=== PATIENT | female | born 1980 | race Caucasian/White ===

== ENCOUNTER 2018-05-12 09:17 | Inpatient (IN) ==
--- NOTE | 2018-05-12 17:22 | P.HP ---
History of Present Illness Service: 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 Patient states "hurts very much" associated with blurring of vision and itching. That evening patient developed a fever of 104 with fever and chills. She took some antibiotic eyedrops 2 drops 4 times a day which help with the itching however there was no improvement in the redness and pain in the eye. Patient denies any urinary symptoms, no burning, no vaginal discharge denies any melena or hematochezia. Last evening in addition to above symptoms complained of left-sided numbness lasting for few minutes and then recurred again and this time persistent. Persistence prompted consult to ER [facility] On further questioning patient states history of on and off palpitations. she works for Dr. [employer] where an an EKG was done in the recent past and was not sure what the results was but she was advised to take aspirin 2 months ago. She was taking 81 mg intermittently. On workup there at [place] - a facial CT was done which shows no abscess there was some scattered lymphadenopathy largest size of 1.8 cm the right submandibular area. Head CT was negative chest x-ray was negative. influenza a and B was negative blood cultures 2 were drawn. A UA shows 9-30 WBCs. C&S was sent. CBC shows a white count of 13 with the neutrophils of 77.3. Blood chemistry shows sodium of 139 potassium 3.8 chloride 104 CO2 26 BUN 7 creatinine 0.8 sugar of 136 AST 55 ALT 64 alkaline phosphatase 64 albumin 3.3 protein 8.3. Lactic acid level was normal at 1.6. Her temperature there was 100.3 with a heart rate of 97 pulse blood pressure is 102/62. Patient was given IV ceftriaxone Patient transferred here for further evaluation and management. Inpatient Certification: I certify that the inpatient services were ordered in accordance with Medicare regulations governing the order. This includes certification that hospital inpatient services are reasonable and necessary and in the case of services not specified as inpatient-only under 42 CFR 419.22(n), that they are appropriately provided as inpatient services in accordance to with the 2-midnight benchmark under 43 CFR 412.3(e) Estimated Total Length of Stay (Days): 2 Plans for Post Hospital Care: Not yet determined Review of Systems All other systems reviewed negative except as stated in HPI [facility] - History History Provided By: Patient - Medical History Medical History: Medical History (Last Reviewed 05/12/18 @ 10:19 by Judy Rao MD) Depression Hx of wisdom tooth extraction - Surgical History Surgical History: Surgical History (Last Reviewed 05/12/18 @ 10:19 by Judy Rao MD) Hx of breast reduction, elective Hx of cholecystectomy Hx of tonsillectomy Hx of tubal ligation - Family History Family History: Family History (Last Updated 05/12/18 @ 17:09 by Gary Gaming MD) Other Family history of diabetes mellitus Family history of hypertension - Tobacco History Second Hand Smoke Exposure: No Tobacco Use In Past 30 Days: No Smoking Status: Never smoker - Alcohol History How Often Do You Have a Drink Containing Alcohol: Monthly or less - Substance Use History Substance History: No History of Abuse Medications and Allergies Active Medications: Active Medications Sodium Chloride (Ns Inj) 1,000 mls @ 42 mls/hr IV.CONT .[id number] AP Allergies Allergy/AdvReac Type Severity Reaction Status Date / Time hydrocodone AdvReac Intermediate Nausea/Vomi Verified 05/12/18 09:38 ting Home Medications Medication Instructions Recorded Confirmed Type acetaminophen [Tylenol] 1,300 mg PO Q4H PRN 05/12/18 05/12/18 History aspirin [Aspirin Low Dose] 81 mg PO DAILY 05/12/18 05/12/18 History cetirizine [Zyrtec] 10 mg PO DAILY 05/12/18 05/12/18 History Exam Vital signs: Vital Signs 05/12/18 16:41 Temperature 98.6 F Pulse Rate 84 Respiratory Rate 20 Blood Pressure 115/69 Pulse Oximetry 95 Narrative: Awake alert oriented 3 not in any form of distress HEENT: Anicteric sclerae injected left lower conjunctivae, erythematous sclerae, extraocular muscles of the right eye full range of motion Left eye on exam of extraocular muscles positive pain with horizontal movements of the eye., Positive blurring of vision grossly, no orbital swelling moist oral mucosa Neck supple no nuchal rigidity no bruit Chest lungs clear breath sounds no rales no wheezes Heart regular rhythm no murmur Abdomen is soft nontender with good bowel sounds no masses Extremities no edema good peripheral pulses Neurologic exam Awake alert oriented 3 with clear coherent speech cranial nerves extraocular muscles full range of motion however positive pain elicited with horizontal movement of the left eye. Pupils equal Left eye on gross vision testing blurred No facial asymmetry Good gag reflex Tongue midline Grossly no sensory deficits Motor manual muscle tests very very mild left sided weakness of the LUE extremity and decreased motor strength noted on dorsiflexion of the foot noted on exam Grossly no sensory deficit gait testing deferred Caprini VTE Risk Assessment Caprini VTE Risk Assessment: Moderate/High Risk (score >= 2) (TEDS/SCDS) Caprini Risk Assessment Model: Point Value = 1 Point Value = 2 Point Value = 3 Point Value = 5 Age 41-60 Minor surgery BMI > 25 kg/m2 Swollen legs Varicose veins or History of unexplained or recurrent spontaneous Oral contraceptives or hormone replacement Sepsis (< 1 month) Serious lung disease, including pneumonia (< 1 month) Abnormal pulmonary function Acute myocardial infarction Congestive heart failure (< 1 month) History of inflammatory bowel disease Medical patient at bed rest Age 61-74 Arthroscopic surgery Major open surgery (> 45 min) Laparoscopic surgery (> 45 min) Malignancy Confined to bed (> 72 hours) Immobilizing plaster cast Central venous access Age >= 75 History of VTE Family history of VTE Factor V Leiden Prothrombin [id number] Lupus anticoagulant Anticardiolipin antibodies Elevated serum homocysteine Heparin-induced thrombocytopenia Other congenital or acquired thrombophilia Stroke (< 1 month) Elective arthroplasty Hip, pelvis, or leg fracture Acute spinal cord injury (< 1 month) Prophylaxis Regimen: Total Risk Factor Score Risk Level Prophylaxis Regimen 0-1 Low Early ambulation 2 Moderate Order ONE of the following: *Sequential Compression Device (SCD) *Heparin 5000 units SQ BID 3-4 Higher Order ONE of the following medications: *Heparin 5000 units SQ TID *Enoxaparin/Lovenox 40 mg SQ daily (WT < 150 kg, CrCl > 30 mL/min) *Enoxaparin/Lovenox 30 mg SQ daily (WT < 150 kg, CrCl > 10-29 mL/min) *Enoxaparin/Lovenox 30 mg SQ BID (WT < 150 kg, CrCl > 30 mL/min) AND/OR *Sequential Compression Device (SCD) 5 or more Highest Order ONE of the following medications: *Heparin 5000 units SQ TID (Preferred with Epidurals) *Enoxaparin/Lovenox 40 mg SQ daily (WT < 150 kg, CrCl > 30 mL/min) *Enoxaparin/Lovenox 30 mg SQ daily (WT < 150 kg, CrCl > 10-29 mL/min) *Enoxaparin/Lovenox 30 mg SQ BID (WT < 150 kg, CrCl > 30 mL/min) AND *Sequential Compression Device (SCD) Assessment and Plan - Plan 37-year-old right handed female presenting with 2 days fever chills white count on presentation tachycardic with fever Also complained of left-sided numbness and weakness left eye pain and redness with blurring of vision TIA with some mild left sided weakness and paresthesias History of palpitations Head CT was negative We will proceed with MRI of the brain Check carotid ultrasound 2D echo, HOlter Check a TSH Get a 12-lead EKG. Start patient on aspirin 325 mg p.o. daily Neurology consult UTI on UA_ patient asymtpomatic We will follow blood C and S and urine C and S done at [place] Continue on Rocephin daily . Patient received first dose at [place] Acute Left eye pain with redness, conjunctivitis with ameena decrease vision We will get an ophthalmology consult for evaluation and recommendations. Mildly elevated transaminases. We will recheck LFT in a.m. If persistence, consider imaging studies. History of allergy. Continue on Zyrtec 10 mg daily Bilateral teds and SCDs for DVT prophylaxis
[2018-05-12] MEDS: Sod Chloride 0.9% Inj 1,000 ML IV.CONT SCH (18:40)
[2018-05-12] MEDS ORDERED: Acetaminophen/Codeine 300/30 MG Tablet PO PRN (20:10)
--- NOTE | 2018-05-12 22:37 | US ---
EXAM DATE: 05/12/2018 10:28 PM EDT AGE/SEX: 37 years / Female INDICATIONS: Weakness. CLINICAL DATA: This is the patient's initial encounter. Patient reports that signs and symptoms have been present for 2 days and indicates a pain score of 0/10. MEDICAL/SURGICAL HISTORY: . Depression. Cholecystectomy. Tubal ligation. COMPARISON: [facility], CT FACIAL BONES W IV CON, 05/12/2018. . VELOCITY PARAMETERS: ICA/CCA Ratio: Right 1.24 , Left 1.02 ICA: Right 126 cm/sec, Left 127 cm/sec CCA: Right 102 cm/sec, Left 125 cm/sec ECA: Right 73 cm/sec, Left 94 cm/sec Vertebral: Right 80 cm/sec antegrade, Left 81 cm/sec antegrade FINDINGS: Right Carotid: No significant plaque is visualized.The waveforms are within normal limits. Left Carotid: No significant plaque is visualized. The waveforms are within normal limits. Other: Bilateral jugulodigastric cervical lymph nodes are present up to 1.4 x 1.8 x 2.8 cm on the ri ght and 1.3 x 1.4 x 3.0 cm on the left. CONCLUSION: 1. Right Internal Carotid Artery: No significant plaque or narrowing. 2. Left Internal Carotid Artery: No significant plaque or narrowing. 3. Upper limits of normal to mildly enlarged bilateral cervical lymph nodes, nonspecific. Electronically signed by: Jacoby Jordan MD 05/12/2018 10:36 PM EDT
[2018-05-13 06:56] LABS: Baso % (Auto) 0.4 % (0.0-2.0); Eos # (Auto) 0.1 th/mm3 (0.0-0.4); Hematocrit 35.2 % (35.0-46.0); Hemoglobin 12.5 gm/dL (11.6-15.3); Lymph # (Auto) 1.1 th/mm3 (1.0-4.8); Lymph % (Auto) 10.7 % (9.0-44.0); Mean Corpuscular HGB Conc 35.4 % (32.0-36.0); Mean Corpuscular Hemoglobin 31.8 pg (27.0-34.0); Mean Corpuscular Volume 89.7 fL (80.0-100.0); Mean Platelet Volume 7.2 fL (7.0-11.0); Mono # (Auto) 1.2 th/mm3 (0.0-0.9); Neut # (Auto) 7.8 th/mm3 (1.8-7.7); Neut % (Auto) 75.9 % (16.0-70.0); Platelet Count 277 th/mm3 (150-450); Red Blood Count 3.92 mil/mm3 (4.00-5.30); Red Cell Distribution Width 13.3 % (11.6-17.2); White Blood Count 10.3 th/mm3 (4.0-11.0)
[2018-05-13 07:31] LABS: Alanine Aminotransferase 62 U/L (10-53); Albumin 2.8 g/dL (3.4-5.0); Anion Gap 8 meq/L (5-15); Aspartate Aminotransferase 49 U/L (15-37); Blood Urea Nitrogen 6 mg/dL (7-18); Calcium 7.9 mg/dL (8.5-10.1); Carbon Dioxide 25.4 meq/L (21.0-32.0); Chloride 105 meq/L (98-107); Cholesterol 155 mg/dL (120-200); Glomerular Filtration Rate 82 mL/min (>89); Glucose,Random 90 mg/dL (74-106); Potassium 3.6 meq/L (3.5-5.1); Sodium 138 meq/L (136-145)
[2018-05-13 07:41] LABS: Alkaline Phosphatase 165 U/L (45-117); HDL Cholesterol 41.8 mg/dL (40.0-60.0); LDL Cholesterol,Calculated 98 mg/dL (0-99); Thyroid Stimulating Hormone 0.943 uIU/mL (0.358-3.740); Total Protein 7.3 g/dL (6.4-8.2); Triglycerides 76 mg/dL (42-150)
[2018-05-13] MEDS ORDERED: Gadobutrol PF 10 MMOL/10 ML Vial (for RAD) IV.SIG ONE (09:35)
[2018-05-13] MEDS ORDERED: Ibuprofen 400 MG Tablet PO PRN (10:04)
--- NOTE | 2018-05-13 10:06 | P.PN ---
Physical Exam Vital signs: Vital Signs 05/12/18 16:41 05/12/18 22:00 05/13/18 00:00 Temperature 98.6 F 99.1 F 98.9 F Pulse Rate 84 83 80 Respiratory Rate 20 19 20 Blood Pressure 115/69 127/65 120/62 Pulse Oximetry 95 100 100 05/13/18 05:45 05/13/18 08:00 Temperature 99.1 F 102.1 F H Pulse Rate 69 115 H Respiratory Rate 16 20 Blood Pressure 115/66 127/74 Pulse Oximetry 99 96 Intake & Output 05/12/18 05/13/18 05/13/18 18:59 06:59 18:59 Intake Total 1625 / 1625 100 / 100 Balance 1625 / 1625 100 / 100 Weight 88.3 kg 88.3 kg Intake: IV 100 / 100 Rocephin Inj 1,000 MG In NS Inj 100 / 100 100 ML @ 200 mls/hr IV.SIG Q24H AP Rx#:[id number] Oral 1625 / 1625 Other: # Voids 4 Date of Last Bowel Movement 05/12/18 # Bowel Movements 0 Weight On Admission 88.3 kg Narrative: Subjective: Patient is in bed appears tired. Complaints of fever she is noted with temp 102 today. Also complaints of sore throat. No n/v/d/c. Not eating much Eye pain with movement of the eye erythema not improving. Ophtal consulted will eval patient today. Physical exam: GENERAL: Middle age well nourished well developed patient in bed appears sick SKIN: Warm and dry. No rash. HEAD: Atraumatic. Normocephalic. EYES: Sclerae normal, injected left lower conjunctivae, erythematous sclerae, extraocular muscles of the right eye full range of motion. Left eye on exam of extraocular muscles positive pain with horizontal movements of the eye. Positive blurring of vision grossly, no orbital swelling .moist oral mucosa ENT: No nasal bleeding or discharge. Mucous membranes pink and moist. NECK: Trachea midline. No JVD. CARDIOVASCULAR: Regular rate and rhythm. RESPIRATORY: No accessory muscle use. Clear to auscultation. Breath sounds equal bilaterally. GASTROINTESTINAL: Abdomen soft, non-tender, nondistended. Hepatic and splenic margins not palpable. MUSCULOSKELETAL: Extremities without clubbing, cyanosis, or edema. No obvious deformities. NEUROLOGICAL: Awake and alert. No obvious cranial nerve deficits. Motor grossly within normal limits. Five out of 5 muscle strength in the arms and legs. Normal speech. PSYCHIATRIC: Appropriate mood and affect; insight and judgment normal. Assessment and Plan 37-year-old right handed female presenting with 2 days fever chills white count on presentation tachycardic with fever Also complained of left-sided numbness and weakness left eye pain and redness with blurring of vision TIA with some mild left sided weakness and paresthesias, left eye pain and change in vision History of palpitations Head CT was negative MRI of the brain reviewed and findings discussed with Dr Morel , MRI normal. Plan for MRA Check carotid ultrasound 2D echo, HOlter Check a TSH Get a 12-lead EKG. Start patient on aspirin 325 mg p.o. daily Neurology consult, appreciate recs. UTI on UA_ patient asymptomatic We will follow blood C and S and urine C and S done at [place] Continue on Rocephin daily . Patient received first dose at [place] Acute Left eye pain with redness, conjunctivitis with ameena decrease vision. POss 2/2 contact lenses Seen by Ophthalmology appreciate recommendations. Start TobraDex drops QID OS. Avoid contact lens until resolved. Follow up as outpatient or Friday Mildly elevated transaminases. Monitor LFT in a.m. If persistence, consider imaging studies. History of allergy. Continue on Zyrtec 10 mg daily Bilateral teds and SCDs for DVT prophylaxis Results - Labs CBC & Chem 7: 05/13/18 06:15 05/13/18 06:15 Laboratory Results - last 24 hr 05/13/18 05/13/18 06:15 06:15 WBC 10.3 RBC 3.92 L Hgb 12.5 Hct 35.2 MCV 89.7 MCH 31.8 MCHC 35.4 RDW 13.3 Plt Count 277 MPV 7.2 Neut % (Auto) 75.9 H Lymph % (Auto) 10.7 Barton % (Auto) 12.0 H Eos % (Auto) 1.0 Baso % (Auto) 0.4 Neut # (Auto) 7.8 H Lymph # (Auto) 1.1 Barton # (Auto) 1.2 H Eos # (Auto) 0.1 Baso # (Auto) 0.0 WBC Differential . Differential Comment Auto diff final Sodium 138 Potassium 3.6 Chloride 105 Carbon Dioxide 25.4 Anion Gap 8 BUN 6 L Creatinine 0.80 Estimated GFR 82 L Random Glucose 90 Calcium 7.9 L Total Bilirubin 0.6 AST 49 H ALT 62 H Alkaline Phosphatase 165 H Total Protein 7.3 D Albumin 2.8 L Triglycerides 76 Cholesterol 155 LDL Cholesterol, Calc 98 HDL Cholesterol 41.8 Cholesterol/HDL Ratio 3.70 TSH 0.943 - Imaging Impressions Carotid Doppler Study 05/12/18 00:00 CONCLUSION: 1. Right Internal Carotid Artery: No significant plaque or narrowing. 2. Left Internal Carotid Artery: No significant plaque or narrowing. 3. Upper limits of normal to mildly enlarged bilateral cervical lymph nodes, nonspecific.
--- NOTE | 2018-05-13 10:18 | MR ---
EXAM DATE: 05/13/2018 9:37 AM EDT AGE/SEX: 37 years / Female INDICATIONS: Left sided weakness. CLINICAL DATA: This is the patient's subsequent encounter. Patient reports that signs and symptoms h ave been present for 2 days and indicates a pain score of 0/10. MEDICAL/SURGICAL HISTORY: Hypertension. Tubal ligation. Cholecystectomy. Tonsillectomy. [address] reduction. [place] teeth removal. COMPARISON: [facility], CT HEAD W/O CONTRAST, 05/12/2018.. . TECHNIQUE: Multiplanar, multisequence examination of the brain was performed without and with 9 ml Ga davist (gadobutrol) contrast as a single exam dose. FINDINGS: Cerebrum: The ventricles are normal for age. No evidence of midline shift, mass lesion, hemorrhage or acute infarction. No extraaxial fluid collections are seen. The pituitary gland and suprasellar cistern are normal in configuration. White Matter: No significant signal abnormalities are seen in the white matter. Posterior Fossa: The cerebellum and brainstem are intact. The 4th ventricle is midline. The cerebel lopontine angle is unremarkable. The cerebellar tonsils are normal in position. Diffusion Imaging: No focal areas of restricted diffusion are seen. No evidence of acute infarction . Extracranial: The visualized portions of the orbits and paranasal sinuses are unremarkable. Post Contrast: No abnormal areas of parenchymal or dural enhancement. No evidence of blood-brain ba rrier breakdown. CONCLUSION: 1. Negative MR Brain with and without contrast. Electronically signed by: Kunal Dejesus MD 05/13/2018 10:16 AM EDT
--- NOTE | 2018-05-13 10:23 | MB ---
cc: Leta Morel MD DATE: 05/13/2018 REASON FOR CONSULTATION: Paresthesia left side of the face and arm. HISTORY OF PRESENT ILLNESS: This is a 37-year-old woman who 3 days ago woke up with left eye pain, redness, possible pinkeye. She came back from a trip driving back from picking up her children, I believe in [place]. Both of her boys apparently had pinkeye. However, she developed a fever she states of 104 and chills, also some nasal discharge and a sore throat. Used some antibiotic eyedrops which helped with some of the pruritus, but the redness and the pain in the eye did not improve. No nuchal rigidity, but she does state that her left side of the face, arm, and leg at times feel numb. No obvious weakness. Hence was admitted for further workup. She had a facial CT at [place] that did not show an abscess, some lymphadenopathy, right submandibular. Chest x-ray was negative. Influenza A and B were negative. Blood cultures x 2 were drawn. UA showed some white cells. Her temperature currently is 102.4 I am told by nursing staff. She just came back from MRI and still has a left eye pain, redness, pruritus and some paresthesias in the face, arm, and leg. No nuchal rigidity, but her throat does hurt. PAST MEDICAL HISTORY: Only of depression. PAST SURGICAL HISTORY: [place] tooth extraction, breast reduction, cholecystectomy, tonsillectomy and tubal ligation. FAMILY HISTORY: Diabetes and hypertension. 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 Does not smoke, drink or use drugs. PHYSICAL EXAMINATION: VITAL SIGNS: Temperature as stated just recently 102.4, blood pressure 115/66. NEUROLOGIC: She is awake and alert. She is oriented. Her left eye is red and swollen. Extraocular muscles are intact. Visual oconnor are full. Extraocular muscles are intact, but she states she has pain with movement. Face is symmetrical. Tongue is midline. Motor nathan, no significant drift or leg lag. Cerebellar normal. DTRs are 1+. Toes, withdraws. Gait is withheld. LABORATORY DATA: Reviewed. Her neutrophil percentage 75.9, monocytes 12. White count 10.3, hemoglobin 12.5, hematocrit 35.2. Chemistries: GFR 82, her AST 49, ALT 62, alkaline phosphatase 155, albumin 2.8, TSH 0.943. Microbiology is not done. IMAGING: Imaging of the brain has been completed and report is pending, but looking at the fusion and with contrast, I did not see anything significant. No acute infarct. IMPRESSION: Probable viral syndrome with possible pinkeye. Left side dysesthesias at this point are questionable. Her carotids were negative. PLAN: Given her findings, I am going to go ahead and order an MRA just to look at the intracranial arteries to make sure there is no aneurysm, although less likely. She is pending an echocardiogram. Lactic acid will be done. Use Tylenol for her fever and ophthalmology, I believe, has been consulted as well. I will defer to ophthalmology if they think she needs a spinal tap. At this point, I think it is probably a viral etiology, but further recommendations will be made accordingly. She is on Rocephin. Continue with that for the interim and Tylenol for fever. MRA will be ordered. Leta Morel MD DF/DL , 10:07 AM , 10:15 AM
[2018-05-13] MEDS: Acetaminophen 325 MG Tablet PO PRN (13:08)
--- NOTE | 2018-05-13 13:41 | P.CON ---
History of Present Illness Service: Ophthalmology Reason for Consult: left eye pain Primary Care Provider: UNKNOWN Chief Complaint: Fever chills, flulike symptoms, left eye pain, left-sided numbness History of Present Illness: 37 yo F c/o 10 day h/o of left eye redness and pain. States her 2 sons had pink eye recently so she started using their antibiotic drops. Also has been wearing contact lenses up until 3 days ago - last Friday she accidently put contact lens edge grinder machine in her left eye. C/o throbbing pain OS, blurred vision, clear discharge. Also getting a workup for numbness, cervical lymphadenopathy and heart palpitations. [facility] - History History Provided By: Patient - Medical History Medical History: Medical History (Last Reviewed 05/13/18 @ 08:46 by Justyna Langford) Depression Hx of wisdom tooth extraction - Surgical History Surgical History: Surgical History (Last Reviewed 05/13/18 @ 08:46 by Justyna Langford) Hx of breast reduction, elective Hx of cholecystectomy Hx of tonsillectomy Hx of tubal ligation - Family History Family History: Family History (Last Updated 05/12/18 @ 17:09 by Gary Gaming MD) Other Family history of diabetes mellitus Family history of hypertension - Tobacco History Second Hand Smoke Exposure: No Tobacco Use In Past 30 Days: No Smoking Status: Never smoker - Alcohol History How Often Do You Have a Drink Containing Alcohol: Monthly or less - Substance Use History Substance History: No History of Abuse Medications and Allergies Active Medications: Active Medications Acetaminophen (Tylenol) 650 mg PO Q4H PRN PRN Reason: fever/headache Last Admin: 05/13/18 13:08 Dose: 650 mg Acetaminophen/Codeine Phosphate (Tylenol W/Cod #3) 1 tab PO Q4H PRN PRN Reason: PAIN SCALE 5-10/SEVERE COUGH Last Admin: 05/12/18 21:39 Dose: 1 tab Aspirin (Ecotrin) 325 mg PO DAILY [facility] Last Admin: 05/13/18 08:32 Dose: 325 mg Sodium Chloride (Ns Inj) 1,000 mls @ 42 mls/hr IV.CONT .[id number] [facility] Last Admin: 05/12/18 18:40 Dose: 42 mls/hr Ceftriaxone Sodium 1,000 mg/ (Sodium Chloride) 100 mls @ 200 mls/hr IV.SIG Q24H [facility] Last Infusion: 05/13/18 09:16 Dose: Infused Ibuprofen (Motrin) 400 mg PO Q8H PRN PRN Reason: fevers if not releav w/tylenol Last Admin: 05/13/18 10:52 Dose: 400 mg Lorazepam (Ativan Inj) 0.5 mg IV.PUSH ONCE PRN PRN Reason: give prior to MRI Last Admin: 05/13/18 08:36 Dose: 0.5 mg Ondansetron HCl (Zofran Inj) 4 mg IV.PUSH Q6H PRN PRN Reason: NAUSEA OR VOMITING Allergies Allergy/AdvReac Type Severity Reaction Status Date / Time hydrocodone AdvReac Intermediate Nausea/Vomi Verified 05/12/18 09:38 ting Home Medications Medication Instructions Recorded Confirmed Type acetaminophen [Tylenol] 1,300 mg PO Q4H PRN 05/12/18 05/12/18 History aspirin [Aspirin Low Dose] 81 mg PO DAILY 05/12/18 05/12/18 History cetirizine [Zyrtec] 10 mg PO DAILY 05/12/18 05/12/18 History Physical Exam Vital signs: Vital Signs 05/12/18 16:41 05/12/18 22:00 05/13/18 00:00 Temperature 98.6 F 99.1 F 98.9 F Pulse Rate 84 83 80 Respiratory Rate 20 19 20 Blood Pressure 115/69 127/65 120/62 Pulse Oximetry 95 100 100 05/13/18 05:45 05/13/18 08:00 05/13/18 12:00 Temperature 99.1 F 102.1 F H 100.9 F H Pulse Rate 69 115 H 116 H Respiratory Rate 16 20 20 Blood Pressure 115/66 127/74 127/66 Pulse Oximetry 99 96 95 Intake & Output 05/12/18 05/13/18 05/13/18 18:59 06:59 18:59 Intake Total 1625 / 1625 100 / 100 Balance 1625 / 1625 100 / 100 Weight 88.3 kg 88.3 kg Intake: IV 100 / 100 Rocephin Inj 1,000 MG In NS Inj 100 / 100 100 ML @ 200 mls/hr IV.SIG Q24H AP Rx#:[id number] Oral 1625 / 1625 Other: # Voids 4 2 Date of Last Bowel Movement 05/12/18 # Bowel Movements 0 Weight On Admission 88.3 kg - Detailed Eye Exam Comments: Va cc at near OD 20/25, OS 20/40 EOM full OU, no diplopia CVF full OU Pupils 2-1 no APD OU IOP normal to palpation OU Anterior exam OD - normal eyelid, C/S W&Q, K clear, AC deep, pupil round, lens clear OS - mild eyelid edema, conj injection, K clear, AC deep, pupil round, lens clear Assessment and Plan - Assessment (1) Viral conjunctivitis of left eye Code(s): B30.9 - Viral conjunctivitis, unspecified Status: Acute - Plan Viral conjunctivitis vs chemical injury from contact lens edge grinder machine. Will start TobraDex drops QID OS. Avoid contact lens until resolved. Follow up as outpatient or Friday - pt has address and phone number to call and schedule.
--- NOTE | 2018-05-13 14:27 | ECHRPT ---
Indication: CVA/TIA CONCLUSIONS Normal left ventricular size. Wall thickness is normal. The left ventricular systolic function is normal with an estimated ejection fraction in the range of 55-60%. Trace mitral valve regurgitation. There is trace tricuspid valve regurgitation. BP: / HR: Rhythm: Sinus MEASUREMENTS (Male / Female) Normal Values Technical Quality:Fair 2D ECHO LV Diastolic Diameter PLAX 4.4 cm 4.2 - 5.9 / 3.9 - 5.3 cm LV Systolic Diameter PLAX 3.4 cm IVS Diastolic Thickness 0.7 cm 0.6 - 1.0 / 0.6 - 0.9 cm LVPW Diastolic Thickness 0.8 cm 0.6 - 1.0 / 0.6 - 0.9 cm LV Relative Wall Thickness 0.3 RV Internal Dim ED PLAX 2.4 cm LVOT Diameter 1.9 cm Aortic Root Diameter 2.9 cm LA Systolic Diameter LX 3.4 cm 3.0 - 4.0 / 2.7 - 3.8 cm M-MODE AV Cusp Separation MM 1.9 cm DOPPLER AV Peak Velocity 128.0 cm/s AV Peak Gradient 6.6 mmHg AV Mean Gradient 4.0 mmHg AV Velocity Time Integral 18.4 cm LVOT Peak Velocity 80.5 cm/s LVOT Peak Gradient 2.6 mmHg LVOT Velocity Time Integral 11.5 cm AV Area Cont Eq vti 1.8 cm AV Area Cont Eq pk 1.8 cm Mitral E Point Velocity 95.8 cm/s Mitral A Point Velocity 68.6 cm/s Mitral E to A Ratio 1.4 LV E' Lateral Velocity 8.6 cm/s Mitral E to LV E' Lateral Ratio 11.2 LV E' Septal Velocity 10.8 cm/s Mitral E to LV E' Septal Ratio 8.9 PV Peak Velocity 72.2 cm/s PV Peak Gradient 2.1 mmHg FINDINGS LEFT VENTRICLE Normal left ventricular size. Wall thickness is normal. The left ventricular systolic function is normal with an estimated ejection fraction in the range of 55-60%. RIGHT VENTRICLE Normal right ventricular size and systolic function. LEFT ATRIUM The left atrial size is normal. RIGHT ATRIUM The right atrial size is normal. ATRIAL SEPTUM No atrial level shunt is demonstrated by color flow Doppler interrogation. AORTA The aortic root and proximal ascending aorta are normal in size on limited imaging. MITRAL VALVE Trace mitral valve regurgitation. AORTIC VALVE Trileaflet aortic valve. No aortic valve stenosis or regurgitation. TRICUSPID VALVE There is trace tricuspid valve regurgitation. PULMONARY VALVE No pulmonary valve regurgitation or stenosis. VESSELS The inferior vena cava was not well visualized. PERICARDIUM No pericardial effusion. Binu Castellano MD, FACC, [facility] – [place] (Electronically Signed) Final Date:13 May 2018 14:27
[2018-05-13] MEDS ORDERED: LORazepam 1 MG Tablet PO ONE (15:00)
[2018-05-13] MEDS: Sod Chloride 0.9% Inj 1,000 ML IV.CONT SCH (16:13)
--- NOTE | 2018-05-13 16:47 | MR ---
EXAM DATE: 05/13/2018 4:14 PM EDT AGE/SEX: 37 years / Female INDICATIONS: Left sided weakness. CLINICAL DATA: This is the patient's initial encounter. Patient reports that signs and symptoms have been present for 2 days and indicates a pain score of 0/10. MEDICAL/SURGICAL HISTORY: Hypertension. Tubal ligation. Cholecystectomy. Tonsillectomy. COMPARISON: [facility] [place] W & W/O CONTRAST, 05/13/2018. . TECHNIQUE: 3D [id number] MRA was performed. Source images, multiplanar STS MIP, and 3D volum e MIP reconstructions were reviewed. FINDINGS: There is excellent visualization of the major intracranial arteries out to the second-order branch ve ssels. There is no evidence for aneurysm, vessel truncation or stenosis, and no evidence for vascula r malformation. CONCLUSION: Negative exam. Intracranial vessels are all patent without aneurysmal disease. Electronically signed by: Jeffrey Messina MD 05/13/2018 4:46 PM EDT
[2018-05-13] MEDS: Tobramycin/Dexamethasone Opth Drops 5 ML Bottle LEFT EYE SCH ×2 (18:32→22:23)
--- NOTE | 2018-05-13 22:19 | ECG ---
Date Performed: 05/12/2018 Time Performed: 21:55:54 PTAGE: 37 years EKG: Sinus rhythm NORMAL ECG NO PREVIOUS TRACING DOCTOR: Jamir Barajas Interpretating Date/Time 05/13/2018 22:18:38
[2018-05-14] MEDS: Acetaminophen 325 MG Tablet PO PRN ×2 (06:36→16:15)
[2018-05-14] MEDS: Tobramycin/Dexamethasone Opth Drops 5 ML Bottle LEFT EYE SCH ×4 (09:06→20:16)
--- NOTE | 2018-05-14 11:21 | P.PN ---
Physical Exam Vital signs: Vital Signs 05/13/18 12:00 05/13/18 16:00 05/13/18 20:00 Temperature 100.9 F H 98 F 97.6 F Pulse Rate 116 H 80 83 Respiratory Rate 20 20 20 Blood Pressure 127/66 110/71 114/75 Pulse Oximetry 95 97 96 05/14/18 00:00 05/14/18 04:00 05/14/18 08:00 Temperature 98.8 F 99.1 F 97.9 F Pulse Rate 111 H 102 H 91 H Respiratory Rate 20 20 20 Blood Pressure 121/70 103/55 L 108/66 Pulse Oximetry 98 98 96 Intake & Output 05/13/18 05/14/18 05/14/18 18:59 06:59 18:59 Intake Total 1100 / 1100 120 / 120 100 / 100 Balance 1100 / 1100 120 / 120 100 / 100 Weight 88.3 kg 87.7 kg Intake: IV 1100 / 1100 100 / 100 NS Inj 1,000 ML @ 42 mls/hr IV. 1000 / 1000 CONT .[id number] AP Rx#:[id number] Rocephin Inj 1,000 MG In NS Inj 100 / 100 100 / 100 100 ML @ 200 mls/hr IV.SIG Q24H AP Rx#:[id number] Oral 120 / 120 Other: # Voids 2 Date of Last Bowel Movement 05/13/18 Weight On Admission 88.3 kg Narrative: Subjective: Patient is in bed appears tired. With sore throat. With more cough today , says she is coughing up blood. No n/v/d/c. Not eating much, has decreased appetite. Physical exam: GENERAL: Middle age well nourished well developed patient in bed appears sick SKIN: Warm and dry. No rash. HEAD: Atraumatic. Normocephalic. EYES: Sclerae normal, injected left lower conjunctivae, erythematous sclerae, extraocular muscles of the right eye full range of motion. Left eye on exam of extraocular muscles positive pain with horizontal movements of the eye. Positive blurring of vision grossly, no orbital swelling .moist oral mucosa ENT: No nasal bleeding or discharge. Mucous membranes pink and moist. NECK: Trachea midline. No JVD. CARDIOVASCULAR: Regular rate and rhythm. RESPIRATORY: No accessory muscle use. Clear to auscultation. Breath sounds equal bilaterally. GASTROINTESTINAL: Abdomen soft, non-tender, nondistended. Hepatic and splenic margins not palpable. MUSCULOSKELETAL: Extremities without clubbing, cyanosis, or edema. No obvious deformities. NEUROLOGICAL: Awake and alert. No obvious cranial nerve deficits. Motor grossly within normal limits. Five out of 5 muscle strength in the arms and legs. Normal speech. PSYCHIATRIC: Appropriate mood and affect; insight and judgment normal. Assessment and Plan 37-year-old right handed female presenting with 2 days fever chills white count on presentation tachycardic with fever Also complained of left-sided numbness and weakness left eye pain and redness with blurring of vision TIA with some mild left sided weakness and paresthesias, left eye pain and change in vision History of palpitations Head CT was negative MRI of the brain reviewed and findings discussed with Dr Morel , MRI normal. MRA normal Check carotid ultrasound NL, 2D echo pending, Holter TSH nl Get a 12-lead EKG. On aspirin 325 mg p.o. daily Neurology consult, appreciate recs. UTI on UA_ patient asymptomatic We will follow blood C and S and urine C and S done at [facility] Continue on Rocephin daily . Patient received first dose at [facility] Hemoptysis. Add azithromycin, sent sputum cultures, legionella and pneumococcal Ag. Add azithromycin, continue IV abx Rocephin. Consult pulmonology Acute Left eye pain with redness, conjunctivitis with ameena decrease vision. POss 2/2 contact lenses Seen by Ophthalmology appreciate recommendations. Start TobraDex drops QID OS. Avoid contact lens until resolved. Follow up as outpatient or Friday Mildly elevated transaminases. Monitor LFT in a.m. If persistence, consider imaging studies. History of allergy. Continue on Zyrtec 10 mg daily Bilateral teds and SCDs for DVT prophylaxis Discussed with the patient, nurse Results - Labs CBC & Chem 7: 05/13/18 06:15 05/13/18 06:15 Laboratory Results - last 24 hr 05/13/18 11:13 Lactic Acid 1.0 - Imaging Impressions Head MRA 05/13/18 00:00 CONCLUSION: Negative exam. Intracranial vessels are all patent without aneurysmal disease.
[2018-05-14] MEDS: Azithromycin Inj 500 MG in Sodium Chlor 0.9% Inj 250 ML IV.SIG SCH ×2 (16:17→17:15)
[2018-05-14] MEDS: Sod Chloride 0.9% Inj 1,000 ML IV.CONT SCH (17:22)
--- NOTE | 2018-05-14 17:30 | US ---
EXAM DATE: 05/14/2018 5:09 PM EDT AGE/SEX: 37 years / Female INDICATIONS: Elevated lab values. CLINICAL DATA: This is the patient's initial encounter. Patient reports that signs and symptoms have been present for 1 day and indicates a pain score of 0/10. MEDICAL/SURGICAL HISTORY: . Depression. Cholecystectomy. Tubal ligation. Tonsillectomy. Wis dom tooth extraction. Breast reduction. COMPARISON: No prior exams available for comparison. MEASUREMENTS: Liver:__ 15.1 cm. Common Bile Duct:__ 3mm. Right Kidney:__ 10.6 x 5.3 x 4.1 cm. FINDINGS: Liver: Parenchymal echogenicity within normal limits. No focal hepatic lesion demonstrated. No intrah epatic biliary distention. Portal Vein: Normal flow velocity and direction in the main portal vein. Common Duct: No intraluminal mass or stone visualized. Gallbladder: Surgically absent. Pancreas: Not well visualized. No perceptible acute abnormality. Right Kidney: Size and echogenicity within normal limits. No hydronephrosis or mass seen. Other: None. CONCLUSION: 1. No acute abnormality demonstrated. 2. Previous cholecystectomy. Electronically signed by: Jacoby Jordan MD 05/14/2018 5:29 PM EDT
[2018-05-14 19:49] LABS: Albumin 2.6 g/dL (3.4-5.0); Anion Gap 9 meq/L (5-15); Aspartate Aminotransferase 77 U/L (15-37); Blood Urea Nitrogen 8 mg/dL (7-18); Carbon Dioxide 25.1 meq/L (21.0-32.0); Chloride 104 meq/L (98-107); Glomerular Filtration Rate Greater Than 89 mL/min (>89); Glucose,Random 83 mg/dL (74-106); Potassium 3.5 meq/L (3.5-5.1); Sodium 138 meq/L (136-145)
[2018-05-14 19:50] LABS: Alanine Aminotransferase 84 U/L (10-53)
[2018-05-14 19:51] LABS: Alkaline Phosphatase 197 U/L (45-117); Total Protein 7.2 g/dL (6.4-8.2)
[2018-05-14 21:58] LABS: Hepatitis A IgM Antibody Nonreactive (Nonreactive)
[2018-05-14 21:59] LABS: Hepatitits B Surface Antigen Nonreactive (Nonreactive)
[2018-05-15] MEDS: Sod Chloride 0.9% Inj 1,000 ML IV.CONT SCH ×2 (03:36→17:43)
[2018-05-15 08:18] LABS: Baso % (Auto) 0.5 % (0.0-2.0); Eos # (Auto) 0.3 th/mm3 (0.0-0.4); Eos % (Auto) 3.4 % (0.0-4.0); Hematocrit 37.6 % (35.0-46.0); Hemoglobin 12.7 gm/dL (11.6-15.3); Lymph # (Auto) 1.7 th/mm3 (1.0-4.8); Lymph % (Auto) 17.9 % (9.0-44.0); Mean Corpuscular HGB Conc 33.9 % (32.0-36.0); Mean Corpuscular Hemoglobin 30.8 pg (27.0-34.0); Mean Corpuscular Volume 90.9 fL (80.0-100.0); Mean Platelet Volume 7.2 fL (7.0-11.0); Mono # (Auto) 0.9 th/mm3 (0.0-0.9); Mono % (Auto) 9.4 % (0.0-8.0); Neut # (Auto) 6.5 th/mm3 (1.8-7.7); Neut % (Auto) 68.8 % (16.0-70.0); Platelet Count 313 th/mm3 (150-450); Red Blood Count 4.13 mil/mm3 (4.00-5.30); Red Cell Distribution Width 12.9 % (11.6-17.2); White Blood Count 9.4 th/mm3 (4.0-11.0)
[2018-05-15 08:37] LABS: Albumin 2.9 g/dL (3.4-5.0); Anion Gap 9 meq/L (5-15); Aspartate Aminotransferase 78 U/L (15-37); Blood Urea Nitrogen 7 mg/dL (7-18); Calcium 8.7 mg/dL (8.5-10.1); Carbon Dioxide 24.3 meq/L (21.0-32.0); Chloride 106 meq/L (98-107); Glomerular Filtration Rate Greater Than 89 mL/min (>89); Glucose,Random 81 mg/dL (74-106); Potassium 3.7 meq/L (3.5-5.1); Sodium 139 meq/L (136-145)
[2018-05-15 08:39] LABS: Alanine Aminotransferase 97 U/L (10-53)
[2018-05-15 08:40] LABS: Alkaline Phosphatase 213 U/L (45-117)
[2018-05-15] MEDS: Tobramycin/Dexamethasone Opth Drops 5 ML Bottle LEFT EYE SCH ×4 (08:51→21:23)
--- NOTE | 2018-05-15 09:15 | P.PN ---
Physical Exam Vital signs: Vital Signs 05/14/18 12:00 05/14/18 16:00 05/14/18 20:00 Temperature 98.3 F 99.1 F 98.0 F Pulse Rate 88 82 67 Respiratory Rate 20 19 18 Blood Pressure 110/58 L 135/62 114/66 Pulse Oximetry 96 96 97 05/15/18 00:00 05/15/18 04:00 05/15/18 07:36 Temperature 97.6 F 97.9 F 97.9 F Pulse Rate 67 70 86 Respiratory Rate 18 18 12 Blood Pressure 138/59 L 113/69 120/69 Pulse Oximetry 96 98 99 Intake & Output 05/14/18 05/15/18 05/15/18 18:59 06:59 18:59 Intake Total 100 / 100 1000 / 1000 Balance 100 / 100 1000 / 1000 Weight 87.7 kg Intake: IV 100 / 100 1000 / 1000 NS Inj 1,000 ML @ 42 mls/hr IV. 1000 / 1000 CONT .[id number] AP Rx#:[id number] Rocephin Inj 1,000 MG In NS Inj 100 / 100 100 ML @ 200 mls/hr IV.SIG Q24H AP Rx#:[id number] Other: # Voids 4 Date of Last Bowel Movement 05/13/18 05/14/18 05/13/18 Narrative: Subjective: Patient is in bed appears tired. With sore throat and painful LAD on the left side, with left ear pain. Still with cough , not much coughing blood today. No n/v/d/c. Not eating much, has decreased appetite. No fevers overnight. Seem left eye is improving however now the right eye is getting worse. Some abdominal pain today RUQ. Physical exam: GENERAL: Middle age well nourished well developed patient in bed appears sick SKIN: Warm and dry. No rash. HEAD: Atraumatic. Normocephalic. EYES: Sclerae normal, injected left adn right lower conjunctivae, erythematous sclerae, improving on the left side, however patient now with worsening symptoms on right eye . Left eye and right eye on exam of extraocular muscles has pain with EOM. Positive blurring of vision grossly, no orbital swelling . Moist and pink oral mucosa ENT: Red right tympanic membrane. Left ear normal tympanic membrane no pain. No nasal bleeding or discharge. Mucous membranes pink and moist. NECK: Trachea midline. No JVD. CARDIOVASCULAR: Regular rate and rhythm. RESPIRATORY: No accessory muscle use. Clear to auscultation. Breath sounds equal bilaterally. GASTROINTESTINAL: Abdomen soft, nondistended. + BS. Mild tenderness on palpation RUQ. Hepatic and splenic margins not palpable. MUSCULOSKELETAL: Extremities without clubbing, cyanosis, or edema. No obvious deformities. NEUROLOGICAL: Awake and alert. No obvious cranial nerve deficits. Motor grossly within normal limits. Five out of 5 muscle strength in the arms and legs. Normal speech. Assessment and Plan 37-year-old right handed female presenting with 2 days fever chills white count on presentation tachycardic with fever Also complained of left-sided numbness and weakness left eye pain and redness with blurring of vision TIA with some mild left sided weakness and paresthesias, left eye pain and change in vision History of palpitations Head CT was negative MRI of the brain reviewed and findings discussed with Dr Morel , MRI normal. MRA normal Check carotid ultrasound NL, 2D echo pending, Holter TSH nl Get a 12-lead EKG. On aspirin 325 mg p.o. daily Neurology consult, appreciate recs. UTI on UA_ patient asymptomatic We will follow blood C and S and urine C and S done at [place] Continue on Rocephin daily . Patient received first dose at [place] Hemoptysis. Add azithromycin, sent sputum cultures, legionella and pneumococcal Ag. Add azithromycin, continue IV abx Rocephin. Consult pulmonology. Bilateral Right and Left eye pain with redness, conjunctivitis with ameena decrease vision. Left eye improving but now noted right eye worsening. Poss 2/ 2 contact lenses Seen by Ophthalmology appreciate recommendations. Start TobraDex drops QID OS. Avoid contact lens until resolved. Follow up as outpatient or Friday Otitis interna and externa. on IV antibiotics, add ciprofloxacin and asa otic drops. Mildly elevated transaminases. Monitor LFT in a.m. If persistence, consider imaging studies. Transaminitis. Elevated AlkPhos. CT a/p no stones. Elevated LFT repeat LFT are worsening. Will DC Tylenol. Ordered liver US and is normal . also ordered hep panel ans is normal. .Consult GI for evaluation. Patient has a h/o cholecystectomy. History of allergy. Continue on Zyrtec 10 mg daily Bilateral teds and SCDs for DVT prophylaxis Discussed with the patient, nurse Results - Labs CBC & Chem 7: 05/15/18 07:25 05/15/18 07:25 Laboratory Results - last 24 hr 05/14/18 05/14/18 05/15/18 18:40 18:40 07:25 WBC 9.4 RBC 4.13 Hgb 12.7 Hct 37.6 MCV 90.9 MCH 30.8 MCHC 33.9 RDW 12.9 Plt Count 313 MPV 7.2 Neut % (Auto) 68.8 Lymph % (Auto) 17.9 [place] % (Auto) 9.4 H Eos % (Auto) 3.4 Baso % (Auto) 0.5 Neut # (Auto) 6.5 Lymph # (Auto) 1.7 [place] # (Auto) 0.9 Eos # (Auto) 0.3 Baso # (Auto) 0.0 WBC Differential . Differential Comment Auto diff final Sodium 138 Potassium 3.5 Chloride 104 Carbon Dioxide 25.1 Anion Gap 9 BUN 8 Creatinine 0.64 Estimated GFR Greater than 89 Random Glucose 83 Calcium 8.0 L Total Bilirubin 0.4 AST 77 H ALT 84 H Alkaline Phosphatase 197 H Total Protein 7.2 Albumin 2.6 L Hepatitis A IgM Ab Nonreactive Hep Bs Antigen Nonreactive Hep B Core IgM Ab Nonreactive Hep C IgG Ab Nonreactive 05/15/18 07:25 WBC RBC Hgb Hct MCV MCH MCHC RDW Plt Count MPV Neut % (Auto) Lymph % (Auto) [place] % (Auto) Eos % (Auto) Baso % (Auto) Neut # (Auto) Lymph # (Auto) [place] # (Auto) Eos # (Auto) Baso # (Auto) WBC Differential Differential Comment Sodium 139 Potassium 3.7 Chloride 106 Carbon Dioxide 24.3 Anion Gap 9 BUN 7 Creatinine 0.61 Estimated GFR Greater than 89 Random Glucose 81 Calcium 8.7 Total Bilirubin 0.4 AST 78 H ALT 97 H Alkaline Phosphatase 213 H Total Protein 8.0 D Albumin 2.9 L Hepatitis A IgM Ab Hep Bs Antigen Hep B Core IgM Ab Hep C IgG Ab Microbiology 05/14/18 18:18 Sputum - Expectorated Sputum Gram Stain - Final 05/14/18 18:18 Throat Group A Streptococcus Screen ([facility]) - Final - Imaging Impressions Liver Ultrasound 05/14/18 00:00 CONCLUSION: 1. No acute abnormality demonstrated. 2. Previous cholecystectomy.
--- NOTE | 2018-05-15 10:38 | P.CONGI ---
History of Present Illness Consult date: 05/15/18 Consult reason: Elevated LFTs and alkaline phosphatase Chief complaint: Sepsis, UTI, left eye conjunctivitis, left History of Present Illness: This is a 37-year-old female who came into the hospital for further evaluation on 05/12/2018. She was experiencing left eye pain and fever and is now on antibiotics for her left eye. Patient also noted some left-sided weakness 3 days before admission with some numbness but states that she contributed that to a long trip and travel recently from [place]. Patient also notes that she has been having some hemoptysis, nausea but no vomiting, and dyspepsia especially when eating greasy fatty foods. Onset of her dyspepsia has waxed and waned but has worsened over the past month. Patient also notes some symptoms of constipation alternating with diarrhea but states the diarrhea is more prevalent and sometimes is 1-5 times a day with cramping abdominal pain, weakness and fatigue generalized. Patient notes generalized discomfort 6 out of 10, which did end up affecting her work schedule this past week. Patient states she has had colonoscopy in the past for bright red bloody stools which was related to hemorrhoids. Patient states that she still has some bloody stools off and on which are sometimes maroon colored; denies any straining but does note she has to take stool softeners/laxatives when she has not come to the bathroom and to 3 days. Currently patient denies any dysphasia, EtOH usage is approximately 1 time a month but that is a rare social occasion. Patient does have a history of cholecystectomy, no previous EGD. 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 Patient does have tattoos 3 which were done between 2015 and 2017. Patient notes family history of grandfather with prostate cancer that metastasized to: But otherwise negative. Current labs show hemoglobin 12.7, bilirubin 0.4, AST 78 ALT 97, alkaline phosphatase 213, and hepatitis profile is negative. Liver ultrasound showed no biliary dilation and otherwise unremarkable. <Natalya Menendez - Last Filed: 05/15/18 10:41> Review of Systems All other systems reviewed negative except as stated in HPI <Natalya Menendez - Last Filed: 05/15/18 10:41> PMFSH - History History Provided By: Patient - Medical History Medical History: Medical History (Last Reviewed 05/13/18 @ 08:46 by Justyna Langford) Depression Hx of wisdom tooth extraction - Surgical History Surgical History: Surgical History (Last Reviewed 05/13/18 @ 08:46 by Justyna Langford) Hx of breast reduction, elective Hx of cholecystectomy Hx of tonsillectomy Hx of tubal ligation - Family History Family History: Family History (Last Updated 05/12/18 @ 17:09 by Gary Gaming MD) Other Family history of diabetes mellitus Family history of hypertension - Tobacco History Second Hand Smoke Exposure: No Tobacco Use In Past 30 Days: No Smoking Status: Never smoker - Alcohol History How Often Do You Have a Drink Containing Alcohol: Monthly or less - Substance Use History Substance History: No History of Abuse <Natalya Menendez - Last Filed: 05/15/18 10:41> - Medical History Medical History: Medical History (Last Reviewed 05/13/18 @ 08:46 by Justyna Langford) Depression Hx of wisdom tooth extraction - Surgical History Surgical History: Surgical History (Last Reviewed 05/13/18 @ 08:46 by Justyna Langford) Hx of breast reduction, elective Hx of cholecystectomy Hx of tonsillectomy Hx of tubal ligation - Family History Family History: Family History (Last Updated 05/12/18 @ 17:09 by Gary Gaming MD) Other Family history of diabetes mellitus Family history of hypertension <Chantale Mason - Last Filed: 05/15/18 20:28> Medications and Allergies Active Medications: Active Medications Acetaminophen (Tylenol) 650 mg PO Q4H PRN PRN Reason: fever/headache Last Admin: 05/14/18 16:15 Dose: 650 mg Acetaminophen/Codeine Phosphate (Tylenol W/Cod #3) 1 tab PO Q4H PRN PRN Reason: PAIN SCALE 5-10/SEVERE COUGH Last Admin: 05/12/18 21:39 Dose: 1 tab Aspirin (Ecotrin) 325 mg PO DAILY [facility] Last Admin: 05/15/18 08:51 Dose: 325 mg Sodium Chloride (Ns Inj) 1,000 mls @ 42 mls/hr IV.CONT .[id number] [facility] Last Admin: 05/15/18 03:36 Dose: 42 mls/hr Ceftriaxone Sodium 1,000 mg/ (Sodium Chloride) 100 mls @ 200 mls/hr IV.SIG Q24H [facility] Last Infusion: 05/15/18 09:50 Dose: Infused Azithromycin 500 mg/ Sodium (Chloride) 250 mls @ 250 mls/hr IV.SIG Q24H AP Last Admin: 05/14/18 17:15 Dose: 250 mls/hr Ibuprofen (Motrin) 400 mg PO Q8H PRN PRN Reason: fevers if not releav w/tylenol Last Admin: 05/13/18 10:52 Dose: 400 mg Lorazepam (Ativan Inj) 0.5 mg IV.PUSH ONCE PRN PRN Reason: give prior to MRI Last Admin: 05/13/18 08:36 Dose: 0.5 mg Ondansetron HCl (Zofran Inj) 4 mg IV.PUSH Q6H PRN PRN Reason: NAUSEA OR VOMITING Tobramycin/Dexamethasone (Tobradex Opth Drops) 1 drop LEFT EYE QID [facility] Last Admin: 05/15/18 08:51 Dose: 1 drop <Natalya Menendez M - Last Filed: 05/15/18 10:41> Active Medications: Active Medications Acetaminophen/Codeine Phosphate (Tylenol W/Cod #3) 1 tab PO Q4H PRN PRN Reason: PAIN SCALE 5-10/SEVERE COUGH Last Admin: 05/12/18 21:39 Dose: 1 tab Acetic Acid/Hydrocortisone (Vosol Hc Otic Drops) 3 drop LEFT EAR Q8HR [facility] Last Admin: 05/15/18 16:21 Dose: 3 drop Aspirin (Ecotrin) 325 mg PO DAILY [facility] Last Admin: 05/15/18 08:51 Dose: 325 mg Famotidine (Pepcid) 20 mg PO HS [facility] Sodium Chloride (Ns Inj) 1,000 mls @ 42 mls/hr IV.CONT .[id number] [facility] Last Admin: 05/15/18 17:43 Dose: 42 mls/hr Ceftriaxone Sodium 1,000 mg/ (Sodium Chloride) 100 mls @ 200 mls/hr IV.SIG Q24H [facility] Last Infusion: 05/15/18 09:50 Dose: Infused Azithromycin 500 mg/ Sodium (Chloride) 250 mls @ 250 mls/hr IV.SIG Q24H [facility] Last Admin: 05/15/18 14:12 Dose: 250 mls/hr Ibuprofen (Motrin) 400 mg PO Q8H PRN PRN Reason: fevers if not releav w/tylenol Last Admin: 05/13/18 10:52 Dose: 400 mg Lorazepam (Ativan Inj) 0.5 mg IV.PUSH ONCE PRN PRN Reason: give prior to MRI Last Admin: 05/13/18 08:36 Dose: 0.5 mg Ondansetron HCl (Zofran Inj) 4 mg IV.PUSH Q6H PRN PRN Reason: NAUSEA OR VOMITING Last Admin: 05/15/18 14:14 Dose: 4 mg Pantoprazole Sodium (Protonix) 40 mg PO DAILY [facility] Last Admin: 05/15/18 12:45 Dose: 40 mg Polyethylene Glycol (Miralax) 17 gm PO DAILY PRN PRN Reason: CONSTIPATION Stop: 05/17/18 10:38 Tobramycin/Dexamethasone (Tobradex Opth Drops) 1 drop LEFT EYE QID [facility] Last Admin: 05/15/18 17:43 Dose: 1 drop <Chantale Mason - Last Filed: 05/15/18 20:28> Allergies Allergy/AdvReac Type Severity Reaction Status Date / Time hydrocodone AdvReac Intermediate Nausea/Vomi Verified 05/12/18 09:38 ting Home Medications Medication Instructions Recorded Confirmed Type acetaminophen [Tylenol] 1,300 mg PO Q4H PRN 05/12/18 05/12/18 History aspirin [Aspirin Low Dose] 81 mg PO DAILY 05/12/18 05/12/18 History cetirizine [Zyrtec] 10 mg PO DAILY 05/12/18 05/12/18 History Exam Vital signs: Vital Signs 05/14/18 12:00 05/14/18 16:00 05/14/18 20:00 Temperature 98.3 F 99.1 F 98.0 F Pulse Rate 88 82 67 Respiratory Rate 20 19 18 Blood Pressure 110/58 L 135/62 114/66 Pulse Oximetry 96 96 97 05/15/18 00:00 05/15/18 04:00 05/15/18 07:36 Temperature 97.6 F 97.9 F 97.9 F Pulse Rate 67 70 86 Respiratory Rate 18 18 12 Blood Pressure 138/59 L 113/69 120/69 Pulse Oximetry 96 98 99 Intake & Output 05/14/18 05/15/1805/15/18 18:59 06:59 18:59 Intake Total 100 / 100 1000 / 1000 100 / 100 Balance 100 / 100 1000 / 1000 100 / 100 Weight 87.7 kg Intake: IV 100 / 100 1000 / 1000 100 / 100 NS Inj 1,000 ML @ 42 mls/hr IV. 1000 / 1000 CONT .[id number] AP Rx#:[id number] Rocephin Inj 1,000 MG In NS Inj 100 / 100 100 / 100 100 ML @ 200 mls/hr IV.SIG Q24H AP Rx#:[id number] Other: # Voids 4 Date of Last Bowel Movement 05/13/18 05/14/18 05/13/18 - Constitutional mild distress (Mild overweight) - Routine HEENT Exam Head: Present: normocephalic, atraumatic ENT: Present: mucous membranes moist - Routine Neck Exam Present: supple - Routine Respiratory Exam Present: accessory muscle use (None noted patient's respirations are even and unlabored at rest.) - Routine Cardiovascular Exam Present: RRR, S1, S2 - Routine Abdominal Exam Present: soft, tenderness (Mild minimal right upper quadrant) - Routine Skin Exam Present: intact - Routine Neurological Exam Present: alert (Good historian, answers questions appropriately, ), moving all extremities (For nail but did note left-sided numbness and weakness this past week) <Natalya Menendez - Last Filed: 05/15/18 10:41> Vital signs: Vital Signs 05/15/18 00:00 05/15/18 04:00 05/15/18 07:36 Temperature 97.6 F 97.9 F 97.9 F Pulse Rate 67 70 86 Respiratory Rate 18 18 12 Blood Pressure 138/59 L 113/69 120/69 Pulse Oximetry 96 98 99 05/15/18 12:00 Temperature 98.3 F Pulse Rate 84 Respiratory Rate 18 Blood Pressure 111/76 Pulse Oximetry 97 Intake & Output 05/15/18 05/15/18 05/16/18 06:59 18:59 06:59 Intake Total 1000 / 1000 2059 Balance 1000 / 1000 2059 Weight 87.7 kg Intake: IV 1000 / 1000 1100 / 1100 NS Inj 1,000 ML @ 42 mls/hr IV. 1000 / 1000 1000 / 1000 CONT .[id number] AP Rx#:[id number] Rocephin Inj 1,000 MG In NS Inj 100 / 100 100 ML @ 200 mls/hr IV.SIG Q24H [facility] Rx#:[id number] Oral 960 / 960 Other: Date of Last Bowel Movement 05/14/18 05/13/18 # Bowel Movements 0 <Chantale Mason - Last Filed: 05/15/18 20:28> Results - Labs CBC & Chem 7: 05/15/18 07:25 05/15/18 07:25 Labs: Laboratory Results - last 24 hr 05/14/18 05/14/18 05/15/18 18:40 18:40 07:25 WBC 9.4 RBC 4.13 Hgb 12.7 Hct 37.6 MCV 90.9 MCH 30.8 MCHC 33.9 RDW 12.9 Plt Count 313 MPV 7.2 Neut % (Auto) 68.8 Lymph % (Auto) 17.9 Hyde % (Auto) 9.4 H Eos % (Auto) 3.4 Baso % (Auto) 0.5 Neut # (Auto) 6.5 Lymph # (Auto) 1.7 Hyde # (Auto) 0.9 Eos # (Auto) 0.3 Baso # (Auto) 0.0 WBC Differential . Differential Comment Auto diff final Sodium 138 Potassium 3.5 Chloride 104 Carbon Dioxide 25.1 Anion Gap 9 BUN 8 Creatinine 0.64 Estimated GFR Greater than 89 Random Glucose 83 Calcium 8.0 L Total Bilirubin 0.4 AST 77 H ALT 84 H Alkaline Phosphatase 197 H Total Protein 7.2 Albumin 2.6 L Hepatitis A IgM Ab Nonreactive Hep Bs Antigen Nonreactive Hep B Core IgM Ab Nonreactive Hep C IgG Ab Nonreactive 05/15/18 07:25 WBC RBC Hgb Hct MCV MCH MCHC RDW Plt Count MPV Neut % (Auto) Lymph % (Auto) Hyde % (Auto) Eos % (Auto) Baso % (Auto) Neut # (Auto) Lymph # (Auto) Hyde # (Auto) Eos # (Auto) Baso # (Auto) WBC Differential Differential Comment Sodium 139 Potassium 3.7 Chloride 106 Carbon Dioxide 24.3 Anion Gap 9 BUN 7 Creatinine 0.61 Estimated GFR Greater than 89 Random Glucose 81 Calcium 8.7 Total Bilirubin 0.4 AST 78 H ALT 97 H Alkaline Phosphatase 213 H Total Protein 8.0 D Albumin 2.9 L Hepatitis A IgM Ab Hep Bs Antigen Hep B Core IgM Ab Hep C IgG Ab - Imaging Impressions Liver Ultrasound 05/14/18 00:00 CONCLUSION: 1. No acute abnormality demonstrated. 2. Previous cholecystectomy. <DowneyNellieNatalya M - Last Filed: 05/15/18 10:41> - Labs CBC & Chem 7: 05/15/18 07:25 05/15/18 07:25 Labs: Laboratory Results - last 24 hr 05/14/18 05/15/18 05/15/18 18:40 07:25 07:25 WBC 9.4 RBC 4.13 Hgb 12.7 Hct 37.6 MCV 90.9 MCH 30.8 MCHC 33.9 RDW 12.9 Plt Count 313 MPV 7.2 Neut % (Auto) 68.8 Lymph % (Auto) 17.9 Hyde % (Auto) 9.4 H Eos % (Auto) 3.4 Baso % (Auto) 0.5 Neut # (Auto) 6.5 Lymph # (Auto) 1.7 Hyde # (Auto) 0.9 Eos # (Auto) 0.3 Baso # (Auto) 0.0 WBC Differential . Differential Comment Auto diff final Sodium 139 Potassium 3.7 Chloride 106 Carbon Dioxide 24.3 Anion Gap 9 BUN 7 Creatinine 0.61 Estimated GFR Greater than 89 Random Glucose 81 Calcium 8.7 Iron TIBC % Saturation Ferritin Total Bilirubin 0.4 AST 78 H ALT 97 H Alkaline Phosphatase 213 H Total Protein 8.0 D Albumin 2.9 L Tumor Marker AFP Hepatitis A IgM Ab Nonreactive Hep Bs Antigen Nonreactive Hep B Core IgM Ab Nonreactive Hep C IgG Ab Nonreactive 05/15/18 05/15/18 12:05 12:05 WBC RBC Hgb Hct MCV MCH MCHC RDW Plt Count MPV Neut % (Auto) Lymph % (Auto) Hyde % (Auto) Eos % (Auto) Baso % (Auto) Neut # (Auto) Lymph # (Auto) Hyde # (Auto) Eos # (Auto) Baso # (Auto) WBC Differential Differential Comment Sodium Potassium Chloride Carbon Dioxide Anion Gap BUN Creatinine Estimated GFR Random Glucose Calcium Iron 41 L TIBC 284 % Saturation 14.4 L Ferritin 163 Total Bilirubin AST ALT Alkaline Phosphatase Total Protein Albumin Tumor Marker AFP 1.5 Hepatitis A IgM Ab Hep Bs Antigen Hep B Core IgM Ab Hep C IgG Ab - Imaging Impressions Chest CTA 05/15/18 00:00 CONCLUSION: 1. No acute findings. Negative for pulmonary embolus. Sinuses CT 05/15/18 00:00 CONCLUSION: 1. Mild chronic bilateral paranasal sinus disease involving all paranasal sinuses except for the frontal sinuses. <Chantale Mason - Last Filed: 05/15/18 20:28> Assessment and Plan (1) Transaminitis Status: Acute Code(s): R74.0 - Nonspecific elevation of levels of transaminase and lactic acid dehydrogenase [LDH] (2) Dyspepsia Status: Acute Code(s): R10.13 - Epigastric pain (3) GERD with esophagitis Status: Acute Code(s): K21.0 - Gastro-esophageal reflux disease with esophagitis (4) IBS (irritable bowel syndrome) Status: Acute Code(s): K58.9 - Irritable bowel syndrome without diarrhea - Plan Transaminitis, unspecified patient has minimal alcohol use once a month and no alcohol in the past 2 weeks. Positive for tattoos 3 in 2015 2016. Does note some right upper quadrant tenderness to light palpation on exam. Will need full liver workup to rule out autoimmune versus medications versus inflammatory Dyspepsia, noted symptoms of nausea but no vomiting which have worsened over the past month. Patient does take Zyrtec on a regular basis, history of allergies. No previous EGD. Symptoms worse with greasy fatty foods but patient states she does not eat late at night. Has noted decreased appetite in the past few weeks. Possible IBS, symptoms of constipation alternated with diarrhea. Patient has had history of cholecystectomy. Patient does take bowel regimen meds if she is not going to the bathroom in 2 days but states she has more diarrhea than constipation and notes green/yellow stools with mucus and occasional streaks of blood noted. Diarrhea, recent travel to [place], change in her normal dietary habits, decreased appetite History of rectal bleeding, bright red and maroon stools. Symptoms could be related to IBS versus bleeding hemorrhoids, urgency and bowel straining. Colonoscopy 5 years ago in [place] area which did show hemorrhoids. Generalized weakness and fatigue, left-sided numbness and weakness over the past week. Neuro consult has been ordered Left eye infection being monitored and treated per attending with Tobrex drops Hemoptysis, pulmonary consult ordered. Previous colonoscopy 5 years ago which did show some bleeding hemorrhoids otherwise unremarkable to her knowledge Current labs show hemoglobin 12.7, bilirubin normal at 0.4, AST elevated 78 ALT 97, alkaline phosphatase 213, hepatitis profile negative. Liver ultrasound shows no biliary distention otherwise unremarkable Plan Diet per attending as tolerated PPI Monitor intake and output , any symptoms of diarrhea Zofran Antibiotics per attending MiraLAX as needed as needed Lab , liver workup AFP, GABRIELLE, ceruloplasmin, ferritin, alpha-1 antitrypsin, AMA, AMSA Stools for ova and parasite, pathogens Consider EGD and colonoscopy, next week possible Friday. After evaluation from neuro and pulmonary pending. Further recommendations to follow Patient was seen per myself and Dr. Mason, note was written on her behalf <Natalya Menendez - Last Filed: 05/15/18 10:41> (1) Transaminitis Status: Acute Code(s): R74.0 - Nonspecific elevation of levels of transaminase and lactic acid dehydrogenase [LDH] (2) Dyspepsia Status: Acute Code(s): R10.13 - Epigastric pain (3) GERD with esophagitis Status: Acute Code(s): K21.0 - Gastro-esophageal reflux disease with esophagitis (4) IBS (irritable bowel syndrome) Status: Acute Code(s): K58.9 - Irritable bowel syndrome without diarrhea - Attending Attestation seen, examined agree with above <Chantale Mason - Last Filed: 05/15/18 20:28>
[2018-05-15] MEDS ORDERED: Polyethylene Glycol 3350 17 GM Packet PO PRN (10:39)
[2018-05-15 12:27] VITALS: RESP 18
[2018-05-15 12:48] LABS: % Iron Saturation 14.4 % (20-50)
[2018-05-15 12:56] LABS: Alpha Fetoprotein Tumor Marker 1.5 ng/mL (0.5-8.0)
[2018-05-15] MEDS: Azithromycin Inj 500 MG in Sodium Chlor 0.9% Inj 250 ML IV.SIG SCH (14:12)
[2018-05-15] MEDS: HYDROCORTISONE LEFT EAR SCH ×2 (16:21→21:24)
[2018-05-15] MEDS: ACETIC ACID LEFT EAR SCH ×2 (16:21→21:24)
--- NOTE | 2018-05-15 17:19 | CT ---
EXAM DATE: 05/15/2018 5:10 PM EDT AGE/SEX: 37 years / Female INDICATIONS: Sinusitis CLINICAL DATA: This is the patient's initial encounter. Patient reports that signs and symptoms have been present for 3 days and indicates a pain score of 0/10. MEDICAL/SURGICAL HISTORY: Gastroesophageal reflux disease. Inflammatory bowel disease. Conjunctivi tis left eye Tonsillectomy. Tubal ligation. Breast reduction RADIATION DOSE: 15.22 CTDI (mGy) COMPARISON: [facility], CT HEAD W/O CONTRAST, 05/12/2018. . TECHNIQUE: Contiguous axial thin-section CT images of the paranasal sinuses were performed. Using au tomated exposure control and adjustment of the mA and/or kV according to patient size, radiation dose was kept as low as reasonably achievable to obtain optimal diagnostic quality images. DICOM format image data is available electronically for review and comparison. FINDINGS: Frontal Sinuses: No evidence of mucoperiosteal thickening or air-fluid level. Nasal Cavity: The septum is midline. The turbinates are intact. Olfactory Recesses: Symmetric and normal depth. Maxillary Sinuses: Mild mucosal thickening involving the maxillary sinuses bilaterally. No air-fluid levels.. Outflow Tract: The ostiomeatal outflow tracts are symmetric and patent. Ethmoid Sinuses: Scattered mild mucosal thickening throughout the anterior, middle, and posterior et hmoid air cells bilaterally. No air-fluid levels. No bony destruction.. Sphenoid Sinuses: Mild mucosal thickening involving the sphenoid sinuses bilaterally. No air-fluid l evels.. Other: The nasofrontal ducts are patent. The sphenoethmoidal recesses are patent. CONCLUSION: 1. Mild chronic bilateral paranasal sinus disease involving all paranasal sinuses except for the fro ntal sinuses. Electronically signed by: Kunal Dejesus MD 05/15/2018 5:18 PM EDT
--- NOTE | 2018-05-15 17:22 | CT ---
EXAM DATE: 05/15/2018 5:09 PM EDT AGE/SEX: 37 years / Female INDICATIONS: Hemoptysis, Short of Breath CLINICAL DATA: This is the patient's initial encounter. Patient reports that signs and symptoms have been present for 1 day and indicates a pain score of 0/10. MEDICAL/SURGICAL HISTORY: Gastroesophageal reflux disease. Inflammatory bowel disease. Tonsillecto my. Tubal ligation. Breast reduction RADIATION DOSE: 20.60 CTDI (mGy) COMPARISON: No prior exams available for comparison. TECHNIQUE: Volumetric scanning was performed using a multi-row detector CT scanner during bolus infu antelmo of 60ML ml Omnipaque 350 (iohexol) nonionic water-soluble contrast as a single exam dose. The d emili was post processed with a variety of visualization algorithms including full volume maximum inten sity projection and sliding thin slab reformation. Using automated exposure control and adjustment o f the mA and/or kV according to patient size, radiation dose was kept as low as reasonably achievable to obtain optimal diagnostic quality images. DICOM format image data is available electronically fo r review and comparison. FINDINGS: No filling defects to suggest pulmonary embolic disease. There is no lung consolidation. No pleural o r pericardial effusion. There is no hilar, mediastinal or axillary adenopathy. No acute findings in the upper abdomen. No acu te bony abnormality. CONCLUSION: 1. No acute findings. Negative for pulmonary embolus. Electronically signed by: Tamir Manzo MD 05/15/2018 5:21 PM EDT
--- NOTE | 2018-05-15 18:28 | MB ---
cc: Odette Kaye MD DATE: 05/15/2018 HISTORY OF PRESENT ILLNESS: Ms. 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 She was visiting in [place] in late April and developed a red eye on the right. She traveled home on about 05/10/2018 and 05/11/2018. They drove the distance, and when she arrived home, she felt ill. She was feverish, and on the day of admission, she presented with a temperature of 104. She had used some antibiotic eye drops in that right eye without improvement, but no other specific therapy. In addition, the evening before she presented, she developed some left-sided weakness and numbness, etiology unclear. Over the last day or 2, she has had some cough, sinus congestion and blood streaking of the sputum and I am asked to see her about that. There is no x-ray of her chest that I can identify in the EMR at this point. She has had no chest pain, no pleurisy. Temperature has come down and is 97-98 now, and she is not particularly short of breath, although she was on presentation. The only past pulmonary history or respiratory history is recurring sinus infections over the last year or so with occasional bronchitis. There is a family history of asthma. All 3 of her sons have asthma, but she has never had asthma. 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 She does have intermittent diarrhea, but that has been chronic, not just recent. Serum chemistries are normal. BUN and creatinine are normal. O2 saturation has been consistently in the upper 90s. ADDITIONAL PAST MEDICAL HISTORY: Depression, history of breast reduction, cholecystectomy, tonsillectomy and a tubal ligation in February of this year. FAMILY HISTORY: Mother is alive. Father is an alcoholic. She has 3 boys, all of whom have asthma. She has 2 brothers in good health. There is no collagen vascular disease history in the family. SOCIAL HISTORY: She is , living with her . Two of her sons are from this , one from a previous relationship. She has never smoked. She denies any illicit drug use and she rarely drinks alcohol. The only animal exposure is a peripheral exposure to chickens, which her and sons take care of. She is not involved in that, she said. REVIEW OF SYSTEMS: Other than that noted above, no serious headache. No vomiting, although she has had intermittent nausea. No skin rash. No musculoskeletal complaints. No chronic edema. PHYSICAL EXAMINATION: GENERAL: An overweight female,no distress at rest, quite comfortable. VITAL SIGNS: Afebrile, blood pressure is 113/70, pulse is 70, respirations are 16, sat 97% on room air. HEENT: Sclerae are red on the right, clear on the left. Mucous membranes are moist. No ulcers noted. No thrush. NECK: Veins are flat. LYMPHATIC: No adenopathy in the neck or supraclavicular region. CHEST: Completely clear. No wheezes, rales or congestion. HEART: Regular rhythm. No harsh murmur. ABDOMEN: Soft, although obese. No palpable tenderness or mass. EXTREMITIES: No peripheral edema or calf tenderness. No cyanosis or clubbing. DISCUSSION: Ms. Toussaint presents with a high fever, a red eye and some elevation in her liver functions. She is now having blood-streaked sputum. I have ordered a CTA, sinus CT and added an ANCA to the other serologies that are already ordered. Further diagnostic and/or therapeutic intervention will depend on the results of these studies. R. MD FRANSISCO Fonseca/tracey , 04:06 PM , 04:14 PM
[2018-05-15] MEDS: Famotidine 20 MG Tablet PO SCH (21:22)
[2018-05-16] MEDS: ACETIC ACID LEFT EAR SCH ×3 (06:47→22:54)
[2018-05-16] MEDS: HYDROCORTISONE LEFT EAR SCH ×3 (06:47→22:54)
[2018-05-16 07:35] LABS: Baso % (Auto) 0.5 % (0.0-2.0); Eos # (Auto) 0.3 th/mm3 (0.0-0.4); Eos % (Auto) 3.9 % (0.0-4.0); Hematocrit 35.6 % (35.0-46.0); Hemoglobin 12.1 gm/dL (11.6-15.3); Lymph # (Auto) 1.9 th/mm3 (1.0-4.8); Lymph % (Auto) 22.5 % (9.0-44.0); Mean Corpuscular HGB Conc 33.8 % (32.0-36.0); Mean Corpuscular Hemoglobin 30.4 pg (27.0-34.0); Mean Corpuscular Volume 89.9 fL (80.0-100.0); Mean Platelet Volume 6.9 fL (7.0-11.0); Mono # (Auto) 0.9 th/mm3 (0.0-0.9); Neut # (Auto) 5.4 th/mm3 (1.8-7.7); Neut % (Auto) 63.1 % (16.0-70.0); Platelet Count 337 th/mm3 (150-450); Red Blood Count 3.97 mil/mm3 (4.00-5.30); White Blood Count 8.6 th/mm3 (4.0-11.0)
[2018-05-16 07:53] LABS: Alanine Aminotransferase 79 U/L (10-53)
[2018-05-16 07:55] LABS: Alkaline Phosphatase 188 U/L (45-117); Total Protein 7.4 g/dL (6.4-8.2)
[2018-05-16 07:56] LABS: Albumin 2.7 g/dL (3.4-5.0); Anion Gap 8 meq/L (5-15); Aspartate Aminotransferase 44 U/L (15-37); Blood Urea Nitrogen 8 mg/dL (7-18); Calcium 8.2 mg/dL (8.5-10.1); Carbon Dioxide 24.6 meq/L (21.0-32.0); Chloride 106 meq/L (98-107); Glomerular Filtration Rate Greater Than 89 mL/min (>89); Glucose,Random 80 mg/dL (74-106); Potassium 3.9 meq/L (3.5-5.1); Sodium 139 meq/L (136-145)
[2018-05-16] MEDS: Tobramycin/Dexamethasone Opth Drops 5 ML Bottle LEFT EYE SCH ×4 (09:29→20:55)
--- NOTE | 2018-05-16 10:31 | P.PN ---
Physical Exam Vital signs: Vital Signs 05/15/18 12:00 05/15/18 20:00 05/16/18 00:00 Temperature 98.3 F 98.1 F 98.4 F Pulse Rate 84 80 59 L Respiratory Rate 18 Blood Pressure 111/76 122/64 108/59 L Pulse Oximetry 97 95 98 05/16/18 04:00 05/16/18 08:00 Temperature 98.5 F 97.2 F L Pulse Rate 77 71 Respiratory Rate 18 Blood Pressure 120/60 112/57 L Pulse Oximetry 100 99 Intake & Output 05/15/18 05/16/18 05/16/18 18:59 06:59 18:59 Intake Total 2059 Balance 2059 Intake: IV 1100 / 1100 NS Inj 1,000 ML @ 42 mls/hr IV. 1000 / 1000 CONT .[id number] AP Rx#:[id number] Rocephin Inj 1,000 MG In NS Inj 100 / 100 100 ML @ 200 mls/hr IV.SIG Q24H AP Rx#:[id number] Oral 960 / 960 Other: # Voids 3 Date of Last Bowel Movement 05/13/18 05/15/18 # Bowel Movements 0 Narrative: Subjective: Patient is in bed appears improved today. With sore throat and painful LAD on the left side, with left ear pain, improving. Still with cough , not much coughing blood today. Seen by pulmonology No n/v/d/c. Eating better today. No fevers overnight. Seem left eye and the right eye is getting better. No abdominal pain today. Liver function tests improving. No pain in the ear today. There is no discharge. Physical exam: GENERAL: Middle age well nourished well developed patient in bed appears not acute distress SKIN: Warm and dry. No rash. EYES: Sclerae normal, injected left adn right lower conjunctivae, erythematous sclerae, improving on the left side, however patient now with worsening symptoms on right eye . Left eye and right eye extraocular movements are nonpainful and patient is improving. No blurry vision, no orbital swelling . Moist and pink oral mucosa ENT: Red right tympanic membrane, improving. Left ear normal tympanic membrane no pain. No nasal bleeding or discharge. Mucous membranes pink and moist. NECK: Trachea midline. No JVD. CARDIOVASCULAR: Regular rate and rhythm. RESPIRATORY: No accessory muscle use. Clear to auscultation. Breath sounds equal bilaterally. GASTROINTESTINAL: Abdomen soft, nondistended. + BS. Mild tenderness on palpation RUQ. Hepatic and splenic margins not palpable. MUSCULOSKELETAL: Extremities without clubbing, cyanosis, or edema. No obvious deformities. NEUROLOGICAL: Awake and alert. No obvious cranial nerve deficits. Motor grossly within normal limits. Five out of 5 muscle strength in the arms and legs. Normal speech. Assessment and Plan 37-year-old right handed female presenting with 2 days fever chills white count on presentation tachycardic with fever Also complained of left-sided numbness and weakness left eye pain and redness with blurring of vision TIA with some mild left sided weakness and paresthesias, left eye pain and change in vision History of palpitations Head CT was negative MRI of the brain reviewed and findings discussed with Dr Morel , MRI normal. MRA normal Check carotid ultrasound NL, 2D echo pending, Holter TSH nl Get a 12-lead EKG. On aspirin 325 mg p.o. daily Neurology consult, appreciate recs. UTI on UA_ patient asymptomatic We will follow blood C and S and urine C and S done at [facility] Continue on Rocephin daily . Patient received first dose at [facility] Hemoptysis. Add azithromycin, sent sputum cultures, legionella and pneumococcal Ag. Add azithromycin, continue IV abx Rocephin. Consult pulmonology. Bilateral Right and Left eye pain with redness, conjunctivitis with ameena decrease vision. Left eye improving but now noted right eye worsening. Poss 2/ 2 contact lenses Seen by Ophthalmology appreciate recommendations. Start TobraDex drops QID OS. Avoid contact lens until resolved. Follow up as outpatient or Friday Otitis interna and externa. on IV antibiotics, added asa otic drops with significant improvement. Transaminitis Monitor LFT , improved hepatitis panel negative, rest of labs still pending, US negative for acute abnormality, s/p cholecystectomy hh stable today, Fe 163, Iron sat 14.4. Check ferritin CT a/p no stones. Elevated LFT repeat LFT better. DCd Tylenol. Consult GI for evaluation. Patient has a h/o cholecystectomy. History of allergy. Continue on Zyrtec 10 mg daily Bilateral teds and SCDs for DVT prophylaxis Discussed with the patient, nurse Possible discharge tomorrow if continues to improve and no fevers cleared by consultants. Results - Labs CBC & Chem 7: 05/16/18 06:35 05/16/18 06:35 Laboratory Results - last 24 hr 05/15/18 05/15/18 05/16/18 12:05 12:05 06:35 WBC 8.6 RBC 3.97 L Hgb 12.1 Hct 35.6 MCV 89.9 MCH 30.4 MCHC 33.8 RDW 13.0 Plt Count 337 MPV 6.9 L Neut % (Auto) 63.1 Lymph % (Auto) 22.5 [place] % (Auto) 10.0 H Eos % (Auto) 3.9 Baso % (Auto) 0.5 Neut # (Auto) 5.4 Lymph # (Auto) 1.9 [place] # (Auto) 0.9 Eos # (Auto) 0.3 Baso # (Auto) 0.0 WBC Differential . Differential Comment Auto diff final Sodium Potassium Chloride Carbon Dioxide Anion Gap BUN Creatinine Estimated GFR Random Glucose Calcium Iron 41 L TIBC 284 % Saturation 14.4 L Ferritin 163 Total Bilirubin AST ALT Alkaline Phosphatase Total Protein Albumin Tumor Marker AFP 1.5 05/16/18 06:35 WBC RBC Hgb Hct MCV MCH MCHC RDW Plt Count MPV Neut % (Auto) Lymph % (Auto) [place] % (Auto) Eos % (Auto) Baso % (Auto) Neut # (Auto) Lymph # (Auto) [place] # (Auto) Eos # (Auto) Baso # (Auto) WBC Differential Differential Comment Sodium 139 Potassium 3.9 Chloride 106 Carbon Dioxide 24.6 Anion Gap 8 BUN 8 Creatinine 0.71 Estimated GFR Greater than 89 Random Glucose 80 Calcium 8.2 L Iron TIBC % Saturation Ferritin Total Bilirubin 0.2 AST 44 H ALT 79 H Alkaline Phosphatase 188 H Total Protein 7.4 D Albumin 2.7 L Tumor Marker AFP Microbiology 05/14/18 18:18 Throat Group A Streptococcus Screen/Cult - Preliminary No Beta Streptococci isolated at 24 hours 05/14/18 18:18 Sputum - Expectorated Sputum Gram Stain - Final 05/14/18 18:18 Sputum - Expectorated Sputum Sputum Culture - Preliminary Immature growth - reincubate 05/14/18 18:18 Urine - Random Urine Streptococcus pneumoniae Antigen (M - Final Presumptive negative for streptococcus pneumoniae antigen, suggesting no current or recent infection. Infection due to Streptococcus pneumoniae cannot be ruled out since the antigen present in the sample may be below the detection limit of the test. 05/14/18 18:18 Urine - Random Urine Legionella Antigen - Final Presumptive negative for Legionella pneumophila serogroup 1 antigen in urine, suggesting no recent or recurrent infection. Infection due to Legionella cannot be ruled out since other serogroups and species may cause disease, antigen may not be present in urine in early infection, and the level of antigen present in the urine may be below the detection limit of the test. - Imaging Impressions Chest CTA 05/15/18 00:00 CONCLUSION: 1. No acute findings. Negative for pulmonary embolus. Sinuses CT 05/15/18 00:00 CONCLUSION: 1. Mild chronic bilateral paranasal sinus disease involving all paranasal sinuses except for the frontal sinuses.
[2018-05-16 14:02] LABS: Smooth Muscle Total Auto Abs Negative (Negative)
[2018-05-16] MEDS: Azithromycin Inj 500 MG in Sodium Chlor 0.9% Inj 250 ML IV.SIG SCH (14:29)
--- NOTE | 2018-05-16 15:09 | P.PNGI ---
Subjective Interval history: Pt is sleeping awakes to me calling her name, no nausea, vomiting or abd pain <Scout Deng - Last Filed: 05/16/18 15:02> Physical Exam Vital signs: Vital Signs 05/15/18 20:00 05/16/18 00:00 05/16/18 04:00 Temperature 98.1 F 98.4 F 98.5 F Pulse Rate 80 59 L 77 Respiratory Rate 18 18 18 Blood Pressure 122/64 108/59 L 120/60 Pulse Oximetry 95 98 100 05/16/18 08:00 05/16/18 12:00 Temperature 97.2 F L 97.2 F L Pulse Rate 71 66 Respiratory Rate 18 18 Blood Pressure 112/57 L 105/62 Pulse Oximetry 99 96 Intake & Output 05/15/18 05/16/18 05/16/18 18:59 06:59 18:59 Intake Total 2310 / 2310 Balance 2310 / 2310 Intake: IV 1350 / 1350 NS Inj 1,000 ML @ 42 mls/hr IV. 1000 / 1000 CONT .[id number] AP Rx#:[id number] Azithromycin Inj 500 MG In NS 250 / 250 Inj 250 ML @ 250 mls/hr IV.SIG Q24H AP Rx#:[id number] Rocephin Inj 1,000 MG In NS Inj 100 / 100 100 ML @ 200 mls/hr IV.SIG Q24H AP Rx#:[id number] Oral 960 / 960 Other: # Voids 3 Date of Last Bowel Movement 05/13/18 05/15/18 05/15/18 # Bowel Movements 0 - Constitutional no acute distress - Routine HEENT Exam Head: Present: normocephalic ENT: Present: mucous membranes moist - Routine Neck Exam Present: supple - Routine Respiratory Exam Present: CTA bilaterally - Routine Cardiovascular Exam Present: RRR - Routine Abdominal Exam Present: soft, normoactive bowel sounds. Absent: tenderness - Routine Skin Exam Present: intact, dry. Absent: jaundice - Routine Neurological Exam Present: alert, oriented X3 <Scout Deng - Last Filed: 05/16/18 15:02> Vital signs: Vital Signs 05/15/18 20:00 05/16/18 00:00 05/16/18 04:00 Temperature 98.1 F 98.4 F 98.5 F Pulse Rate 80 59 L 77 Respiratory Rate 18 18 18 Blood Pressure 122/64 108/59 L 120/60 Pulse Oximetry 95 98 100 05/16/18 08:00 05/16/18 12:00 Temperature 97.2 F L 97.2 F L Pulse Rate 71 66 Respiratory Rate 18 18 Blood Pressure 112/57 L 105/62 Pulse Oximetry 99 96 Intake & Output 05/15/18 05/16/18 05/16/18 18:59 06:59 18:59 Intake Total 2310 / 2310 Balance 2310 / 2310 Intake: IV 1350 / 1350 NS Inj 1,000 ML @ 42 mls/hr IV. 1000 / 1000 CONT .[id number] AP Rx#:[id number] Azithromycin Inj 500 MG In NS 250 / 250 Inj 250 ML @ 250 mls/hr IV.SIG Q24H AP Rx#:[id number] Rocephin Inj 1,000 MG In NS Inj 100 / 100 100 ML @ 200 mls/hr IV.SIG Q24H AP Rx#:[id number] Oral 960 / 960 Other: # Voids 3 Date of Last Bowel Movement 05/13/18 05/15/18 05/15/18 # Bowel Movements 0 <IsabellaChantale - Last Filed: 05/16/18 15:31> Results - Labs CBC & Chem 7: 05/16/18 06:35 05/16/18 06:35 Laboratory Results - last 24 hr 05/15/18 05/16/18 05/16/18 12:05 06:35 06:35 WBC 8.6 RBC 3.97 L Hgb 12.1 Hct 35.6 MCV 89.9 MCH 30.4 MCHC 33.8 RDW 13.0 Plt Count 337 MPV 6.9 L Neut % (Auto) 63.1 Lymph % (Auto) 22.5 [place] % (Auto) 10.0 H Eos % (Auto) 3.9 Baso % (Auto) 0.5 Neut # (Auto) 5.4 Lymph # (Auto) 1.9 [place] # (Auto) 0.9 Eos # (Auto) 0.3 Baso # (Auto) 0.0 WBC Differential . Differential Comment Auto diff final Sodium 139 Potassium 3.9 Chloride 106 Carbon Dioxide 24.6 Anion Gap 8 BUN 8 Creatinine 0.71 Estimated GFR Greater than 89 Random Glucose 80 Calcium 8.2 L Total Bilirubin 0.2 AST 44 H ALT 79 H Alkaline Phosphatase 188 H Total Protein 7.4 D Albumin 2.7 L Anti-Smooth Muscle Ab Negative Microbiology 05/14/18 18:18 Throat Group A Streptococcus Screen/Cult - Final No Beta Streptococci isolated. 05/14/18 18:18 Sputum - Expectorated Sputum Gram Stain - Final 05/14/18 18:18 Sputum - Expectorated Sputum Sputum Culture - Final - Imaging Impressions Chest CTA 05/15/18 00:00 CONCLUSION: 1. No acute findings. Negative for pulmonary embolus. Sinuses CT 05/15/18 00:00 CONCLUSION: 1. Mild chronic bilateral paranasal sinus disease involving all paranasal sinuses except for the frontal sinuses. <Scout Deng - Last Filed: 05/16/18 15:02> - Labs CBC & Chem 7: 05/16/18 06:35 05/16/18 06:35 Laboratory Results - last 24 hr 05/15/18 05/16/18 05/16/18 12:05 06:35 06:35 WBC 8.6 RBC 3.97 L Hgb 12.1 Hct 35.6 MCV 89.9 MCH 30.4 MCHC 33.8 RDW 13.0 Plt Count 337 MPV 6.9 L Neut % (Auto) 63.1 Lymph % (Auto) 22.5 [place] % (Auto) 10.0 H Eos % (Auto) 3.9 Baso % (Auto) 0.5 Neut # (Auto) 5.4 Lymph # (Auto) 1.9 [place] # (Auto) 0.9 Eos # (Auto) 0.3 Baso # (Auto) 0.0 WBC Differential . Differential Comment Auto diff final Sodium 139 Potassium 3.9 Chloride 106 Carbon Dioxide 24.6 Anion Gap 8 BUN 8 Creatinine 0.71 Estimated GFR Greater than 89 Random Glucose 80 Calcium 8.2 L Total Bilirubin 0.2 AST 44 H ALT 79 H Alkaline Phosphatase 188 H Total Protein 7.4 D Albumin 2.7 L Anti-Smooth Muscle Ab Negative Microbiology 05/14/18 18:18 Throat Group A Streptococcus Screen/Cult - Final No Beta Streptococci isolated. 05/14/18 18:18 Sputum - Expectorated Sputum Gram Stain - Final 05/14/18 18:18 Sputum - Expectorated Sputum Sputum Culture - Final - Imaging Impressions Chest CTA 05/15/18 00:00 CONCLUSION: 1. No acute findings. Negative for pulmonary embolus. Sinuses CT 05/15/18 00:00 CONCLUSION: 1. Mild chronic bilateral paranasal sinus disease involving all paranasal sinuses except for the frontal sinuses. <Chantale Mason - Last Filed: 05/16/18 15:31> Assessment and Plan (1) Transaminitis Status: Acute Code(s): R74.0 - Nonspecific elevation of levels of transaminase and lactic acid dehydrogenase [LDH] (2) Dyspepsia Status: Acute Code(s): R10.13 - Epigastric pain (3) GERD with esophagitis Status: Acute Code(s): K21.0 - Gastro-esophageal reflux disease with esophagitis (4) IBS (irritable bowel syndrome) Status: Acute Code(s): K58.9 - Irritable bowel syndrome without diarrhea - Plan Transaminitis, unspecified patient has minimal alcohol use once a month and no alcohol in the past 2 weeks. Positive for tattoos 3 in 2015 2016. Does note some right upper quadrant tenderness to light palpation on exam. Will need full liver workup to rule out autoimmune versus medications versus inflammatory Dyspepsia, noted symptoms of nausea but no vomiting which have worsened over the past month. Patient does take Zyrtec on a regular basis, history of allergies. No previous EGD. Symptoms worse with greasy fatty foods but patient states she does not eat late at night. Has noted decreased appetite in the past few weeks. Possible IBS, symptoms of constipation alternated with diarrhea. Patient has had history of cholecystectomy. Patient does take bowel regimen meds if she is not going to the bathroom in 2 days but states she has more diarrhea than constipation and notes green/yellow stools with mucus and occasional streaks of blood noted. Diarrhea, recent travel to [place], change in her normal dietary habits, decreased appetite History of rectal bleeding, bright red and maroon stools. Symptoms could be related to IBS versus bleeding hemorrhoids, urgency and bowel straining. Colonoscopy 5 years ago in [place] area which did show hemorrhoids. Generalized weakness and fatigue, left-sided numbness and weakness over the past week. Neuro consult has been ordered Left eye infection being monitored and treated per attending with Tobrex drops Hemoptysis, pulmonary consult ordered. Previous colonoscopy 5 years ago which did show some bleeding hemorrhoids otherwise unremarkable to her knowledge Current labs show hemoglobin 12.7, bilirubin normal at 0.4, AST elevated 78 ALT 97, alkaline phosphatase 213, hepatitis profile negative. Liver ultrasound shows no biliary distention otherwise unremarkable 05/16/12 hepatitis panel negative, rest of labs still pending, US negative for acute abnormality, s/p cholecystectomy hh stable today, Fe 163, Iron sat 14.4 Plan BRISEIDA Antibiotics per attending MiraLAX as needed as needed Await liver workup AFP, GABRIELLE, ceruloplasmin, ferritin, alpha-1 antitrypsin, AMA, AMSA Await Stools for ova and parasite, pathogens Further recommendations to follow Patient was seen per myself and Dr. Mason, note was written on her behalf <Scout Deng - Last Filed: 05/16/18 15:02> (1) Transaminitis Status: Acute Code(s): R74.0 - Nonspecific elevation of levels of transaminase and lactic acid dehydrogenase [LDH] (2) Dyspepsia Status: Acute Code(s): R10.13 - Epigastric pain (3) GERD with esophagitis Status: Acute Code(s): K21.0 - Gastro-esophageal reflux disease with esophagitis (4) IBS (irritable bowel syndrome) Status: Acute Code(s): K58.9 - Irritable bowel syndrome without diarrhea - Attending Attestation agree with above <Chantale Mason - Last Filed: 05/16/18 15:31>
[2018-05-16] MEDS: Sod Chloride 0.9% Inj 1,000 ML IV.CONT SCH (18:19)
[2018-05-16] MEDS: Famotidine 20 MG Tablet PO SCH (20:52)
[2018-05-17] MEDS: HYDROCORTISONE LEFT EAR SCH (07:19)
[2018-05-17] MEDS: ACETIC ACID LEFT EAR SCH (07:19)
--- NOTE | 2018-05-17 08:21 | P.PN ---
Physical Exam Vital signs: Vital Signs 05/16/18 12:00 05/16/18 16:00 05/16/18 20:00 Temperature 97.2 F L 98.4 F 97.7 F Pulse Rate 66 74 73 Respiratory Rate 18 18 18 Blood Pressure 105/62 102/59 L 105/72 Pulse Oximetry 96 97 96 05/17/18 00:00 Temperature 97.2 F L Pulse Rate 68 Respiratory Rate 18 Blood Pressure 110/75 Pulse Oximetry 96 Intake & Output 05/16/18 05/17/18 05/17/18 18:59 06:59 18:59 Intake Total 1720 / 1720 Balance 1720 / 1720 Intake: IV 1000 / 1000 NS Inj 1,000 ML @ 42 mls/hr IV. 1000 / 1000 CONT .[id number] AP Rx#:[id number] Oral 720 / 720 Other: # Voids 1 Date of Last Bowel Movement 05/15/18 05/16/18 Narrative: Subjective: Patient is in bed and is crying. Patient is very frustrated as overnight she received the otic solution in her right eye instead of the ophthalmic solution drops. She says she had pain in her right eye. Eye was flushed with normal saline. Patient feels much better now. Redness improved significantly almost back to normal. Says ear pain is improved significantly and also says she did not have any medication overnight because the otic solution was administered in her left eye. Patient denies fever or chills. No nausea or vomiting. No abdominal pain. Normal bowel movements. Patient feels comfortable and wants to go home today. She has been off of breath. She is not coughing anymore. Physical exam: GENERAL: Middle age well nourished well developed patient in bed appears not acute distress SKIN: Warm and dry. No rash. EYES: Sclerae normal, injected left and right lower conjunctivae, erythematous sclerae, resolved on the left side, right eye with improving erythema. Left eye and right eye extraocular movements are nonpainful and patient is improving. No blurry vision, no orbital swelling . Moist and pink oral mucosa ENT: Red right tympanic membrane, improving, no pain. Left ear normal tympanic membrane no pain. No nasal bleeding or discharge. Mucous membranes pink and moist. NECK: Trachea midline. No JVD. CARDIOVASCULAR: Regular rate and rhythm. RESPIRATORY: No accessory muscle use. Clear to auscultation. Breath sounds equal bilaterally. GASTROINTESTINAL: Abdomen soft, nondistended. + BS. Mild tenderness on palpation RUQ. Hepatic and splenic margins not palpable. MUSCULOSKELETAL: Extremities without clubbing, cyanosis, or edema. No obvious deformities. NEUROLOGICAL: Awake and alert. No obvious cranial nerve deficits. Motor grossly within normal limits. Five out of 5 muscle strength in the arms and legs. Normal speech. Assessment and Plan 37-year-old right handed female presenting with 2 days fever chills white count on presentation tachycardic with fever Also complained of left-sided numbness and weakness left eye pain and redness with blurring of vision TIA with some mild left sided weakness and paresthesias, left eye pain and change in vision History of palpitations Head CT was negative MRI of the brain reviewed and findings discussed with Dr Morel , MRI normal. MRA normal Check carotid ultrasound NL, 2D echo pending, Holter TSH nl Get a 12-lead EKG. On aspirin 325 mg p.o. daily Neurology consult, appreciate recs. UTI on UA_ patient asymptomatic We will follow blood C and S and urine C and S done at [facility] Continue on Rocephin daily . Patient received first dose at [facility] Hemoptysis. Add azithromycin, sent sputum cultures, legionella and pneumococcal Ag. Add azithromycin, continue IV abx Rocephin. Consult pulmonology. Bilateral Right and Left eye pain with redness improved, conjunctivitis. Left eye back at normal. right eye with improved redness, no blurry vision. Poss 2/ 2 contact lenses. Seen by Ophthalmology appreciate recommendations. Start TobraDex drops QID OS. Avoid contact lens until resolved. Follow up as outpatient or Friday Otitis interna and externa. on IV antibiotics, added asa otic drops with significant improvement. DC on po augmentin Transaminitis Monitor LFT , improved hepatitis panel negative, rest of labs still pending, US negative for acute abnormality, s/p cholecystectomy hh stable today, Fe 163, Iron sat 14.4. Check ferritin CT a/p no stones. Elevated LFT repeat LFT better. DCd Tylenol. Consult GI for evaluation. Patient has a h/o cholecystectomy. History of allergy. Continue on Zyrtec 10 mg daily Bilateral teds and SCDs for DVT prophylaxis Discussed with the patient, nurse No more fevers. Patient improved. Discharged home in stable condition to follow with PCP and consultants as outpatient. Results - Labs CBC & Chem 7: 05/17/18 10:28 05/17/18 10:28 Laboratory Results - last 24 hr 05/15/18 12:05 Anti-Smooth Muscle Ab Negative Microbiology 05/14/18 18:18 Throat Group A Streptococcus Screen/Cult - Final No Beta Streptococci isolated. 05/14/18 18:18 Sputum - Expectorated Sputum Gram Stain - Final 05/14/18 18:18 Sputum - Expectorated Sputum Sputum Culture - Final
--- NOTE | 2018-05-17 08:21 | P.DS ---
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 Patient states "hurts very much" associated with blurring of vision and itching. That evening patient developed a fever of 104 with fever and chills. She took some antibiotic eyedrops 2 drops 4 times a day which help with the itching however there was no improvement in the redness and pain in the eye. Patient denies any urinary symptoms, no burning, no vaginal discharge denies any melena or hematochezia. Last evening in addition to above symptoms complained of left-sided numbness lasting for few minutes and then recurred again and this time persistent. Persistence prompted consult to ER [facility] On further questioning patient states history of on and off palpitations. she works for Dr. [employer] where an an EKG was done in the recent past and was not sure what the results was but she was advised to take aspirin 2 months ago. She was taking 81 mg intermittently. On workup there at [facility] - a facial CT was done which shows no abscess there was some scattered lymphadenopathy largest size of 1.8 cm the right submandibular area. Head CT was negative chest x-ray was negative. influenza a and B was negative blood cultures 2 were drawn. A UA shows 9-30 WBCs. C&S was sent. CBC shows a white count of 13 with the neutrophils of 77.3. Blood chemistry shows sodium of 139 potassium 3.8 chloride 104 CO2 26 BUN 7 creatinine 0.8 sugar of 136 AST 55 ALT 64 alkaline phosphatase 64 albumin 3.3 protein 8.3. Lactic acid level was normal at 1.6. Her temperature there was 100.3 with a heart rate of 97 pulse blood pressure is 102/62. Patient was given IV ceftriaxone Patient transferred here for further evaluation and management. DS: Diagnosis - Discharge Diagnosis (1) Dyspepsia Status: Acute (2) GERD with esophagitis Status: Acute (3) IBS (irritable bowel syndrome) Status: Acute (4) Transaminitis Status: Acute (5) Viral conjunctivitis of left eye Status: Acute DS: Medications - Discharge Medications Prescriptions: amoxicillin-pot clavulanate [Augmentin XR] 1 tab PO BID #10 tab ibuprofen 400 mg PO Q8H PRN #30 tab PRN Reason: fevers if not releav w/tylenol Lactobacillus acidoph-L.bulgar [Lactinex] 1 tab PO BID #60 tab tobramycin-dexamethasone [TobraDex] 1 drop LEFT EYE QID 4 Days ml DS: Summary Hospital Course: 37-year-old right handed female presenting with 2 days fever chills white count on presentation tachycardic with fever Also complained of left-sided numbness and weakness left eye pain and redness with blurring of vision TIA with some mild left sided weakness and paresthesias, left eye pain and change in vision History of palpitations Head CT was negative MRI of the brain reviewed and findings discussed with Dr Morel , MRI normal. MRA normal Check carotid ultrasound NL, 2D echo Holter all normal TSH nl Get a 12-lead EKG. On aspirin 325 mg p.o. daily Neurology consult, appreciate recs. UTI on UA_ patient asymptomatic We will follow blood C and S and urine C and S done at [facility] Continue on Rocephin daily . Patient received first dose at [facility] Hemoptysis. Add azithromycin, sent sputum cultures, legionella and pneumococcal Ag. Add azithromycin, continue IV abx Rocephin. Consult pulmonology. Bilateral Right and Left eye pain with redness improved, conjunctivitis. Left eye back at normal. right eye with improved redness, no blurry vision. Poss 2/ 2 contact lenses. Seen by Ophthalmology appreciate recommendations. Start TobraDex drops QID OS. Avoid contact lens until resolved. Follow up as outpatient or Friday Otitis interna and externa. on IV antibiotics, added asa otic drops with significant improvement. DC on po augmentin Transaminitis Monitor LFT , improved hepatitis panel negative, rest of labs still pending, US negative for acute abnormality, s/p cholecystectomy hh stable today, Fe 163, Iron sat 14.4. Check ferritin CT a/p no stones. Elevated LFT repeat LFT better. DCd Tylenol. Consult GI for evaluation. Patient has a h/o cholecystectomy. History of allergy. Continue on Zyrtec 10 mg daily Bilateral teds and SCDs for DVT prophylaxis Discussed with the patient, nurse No more fevers. Patient improved. Discharged home in stable condition to follow with PCP and consultants as outpatient. - Time Spent with Patient Total time spent providing and/or coordinating discharge services: Greater than 30 minutes - Quality: VTE Deep Vein Thrombosis/Pulmonary Embolism Present on Admission: No Exam Vital signs: Vital Signs 05/16/18 12:00 05/16/18 16:00 05/16/18 20:00 Temperature 97.2 F L 98.4 F 97.7 F Pulse Rate 66 74 73 Respiratory Rate 18 18 18 Blood Pressure 105/62 102/59 L 105/72 Pulse Oximetry 96 97 96 05/17/18 00:00 Temperature 97.2 F L Pulse Rate 68 Respiratory Rate 18 Blood Pressure 110/75 Pulse Oximetry 96 Intake & Output 05/16/18 05/17/18 05/17/18 18:59 06:59 18:59 Intake Total 1720 / 1720 Balance 1720 / 1720 Intake: IV 1000 / 1000 NS Inj 1,000 ML @ 42 mls/hr IV. 1000 / 1000 CONT .[id number] AP Rx#:[id number] Oral 720 / 720 Other: # Voids 1 Date of Last Bowel Movement 05/15/18 05/16/18 Narrative: GENERAL: Middle age well nourished well developed patient in bed appears not acute distress SKIN: Warm and dry. No rash. EYES: Sclerae normal, injected left and right lower conjunctivae, erythematous sclerae, resolved on the left side, right eye with improving erythema. Left eye and right eye extraocular movements are nonpainful and patient is improving. No blurry vision, no orbital swelling . Moist and pink oral mucosa ENT: Red right tympanic membrane, improving, no pain. Left ear normal tympanic membrane no pain. No nasal bleeding or discharge. Mucous membranes pink and moist. NECK: Trachea midline. No JVD. CARDIOVASCULAR: Regular rate and rhythm. RESPIRATORY: No accessory muscle use. Clear to auscultation. Breath sounds equal bilaterally. GASTROINTESTINAL: Abdomen soft, nondistended. + BS. Mild tenderness on palpation RUQ. Hepatic and splenic margins not palpable. MUSCULOSKELETAL: Extremities without clubbing, cyanosis, or edema. No obvious deformities. NEUROLOGICAL: Awake and alert. No obvious cranial nerve deficits. Motor grossly within normal limits. Five out of 5 muscle strength in the arms and legs. Normal speech. Results Procedures completed during hospitalization: no procedures Labs on day of discharge: Labs from last 24 hours 05/15/18 12:05 Anti-Smooth Muscle Ab Negative - Impressions ITS Impressions Carotid Doppler Study 05/12/18 00:00 CONCLUSION: 1. Right Internal Carotid Artery: No significant plaque or narrowing. 2. Left Internal Carotid Artery: No significant plaque or narrowing. 3. Upper limits of normal to mildly enlarged bilateral cervical lymph nodes, nonspecific. Head MRI 05/13/18 00:00 CONCLUSION: 1. Negative MR Brain with and without contrast. Head MRA 05/13/18 00:00 CONCLUSION: Negative exam. Intracranial vessels are all patent without aneurysmal disease. Liver Ultrasound 05/14/18 00:00 CONCLUSION: 1. No acute abnormality demonstrated. 2. Previous cholecystectomy. Chest CTA 05/15/18 00:00 CONCLUSION: 1. No acute findings. Negative for pulmonary embolus. Sinuses CT 05/15/18 00:00 CONCLUSION: 1. Mild chronic bilateral paranasal sinus disease involving all paranasal sinuses except for the frontal sinuses. Discharge Plan - Discharge Disposition Patient Disposition: Discharge Home - Discharge Condition Condition: Stable - Discharge Order Discharge Orders: Discharge Order (Routine); Ordered 05/17/18 Ordered By: Coleen Sagastume - Discharge Details Anticipated Discharge Date: 05/17/18 - Physicians Team Primary Care Provider: UNKNOWN, Attending Provider: Coleen Sagastume Other Providers: Leta Morel MD ; Cherelle Lopez MD ; [employer] ; Chantale Mason MD ; Bobby Kaye MD - Rxs /Orders / Referrals /Forms Prescriptions: New amoxicillin-pot clavulanate [Augmentin XR] 1,000-62.5 mg Tablet Extended Release 12 Hr 1 tab PO BID Qty: 10 RF: 0 ibuprofen 400 mg Tablet 400 mg PO Q8H PRN (Reason: fevers if not releav w/tylenol) Qty: 30 RF: 0 Lactobacillus acidoph-L.bulgar [Lactinex] 1 million cell Tablet,Chewable 1 tab PO BID Qty: 60 RF: 0 tobramycin-dexamethasone [TobraDex] 0.3-0.1 % Drops,Suspension 1 drop LEFT EYE QID 4 Days RF: 0 Continue aspirin [Aspirin Low Dose] 81 mg Tablet,Delayed Release (Dr/Ec) 81 mg PO DAILY cetirizine [Zyrtec] 10 mg Tablet 10 mg PO DAILY Discontinued acetaminophen [Tylenol] 325 mg Tablet 1,300 mg PO Q4H PRN (Reason: Fever) Referrals: Chantale Mason MD [Physician] - See Instructions ( Please call the physician 's office to book the appointment to be seen within [1-2 weeks ].) Cherelle Lopez MD [Physician] - See Instructions ( Please call the physician' s office to book the appointment to be seen within [ 2-3 days ].) Clifford Arias MD [Physician] - See Instructions ( Please call the physician 's office to book the appointment to be seen within [ 3-5 days]. To follow up with Dr Mena Hoyt ENT ) UNKNOWN, [Primary Care Provider] - See Instructions ( Please call the physician's office to book the appointment to be seen within [ 2-3 days ].) Forms: School Release, Work Release/Restrictions
[2018-05-17] MEDS: Tobramycin/Dexamethasone Opth Drops 5 ML Bottle LEFT EYE SCH (10:16)
[2018-05-17 11:17] LABS: Baso % (Auto) 0.4 % (0.0-2.0); Eos # (Auto) 0.3 th/mm3 (0.0-0.4); Eos % (Auto) 3.3 % (0.0-4.0); Hematocrit 39.5 % (35.0-46.0); Hemoglobin 13.3 gm/dL (11.6-15.3); Lymph # (Auto) 1.4 th/mm3 (1.0-4.8); Lymph % (Auto) 18.1 % (9.0-44.0); Mean Corpuscular HGB Conc 33.6 % (32.0-36.0); Mean Corpuscular Hemoglobin 30.1 pg (27.0-34.0); Mean Corpuscular Volume 89.7 fL (80.0-100.0); Mean Platelet Volume 6.5 fL (7.0-11.0); Mono # (Auto) 0.4 th/mm3 (0.0-0.9); Mono % (Auto) 5.7 % (0.0-8.0); Neut # (Auto) 5.6 th/mm3 (1.8-7.7); Neut % (Auto) 72.5 % (16.0-70.0); Platelet Count 367 th/mm3 (150-450); Red Blood Count 4.41 mil/mm3 (4.00-5.30); Red Cell Distribution Width 12.8 % (11.6-17.2); White Blood Count 7.7 th/mm3 (4.0-11.0)
[2018-05-17 11:38] LABS: Anion Gap 8 meq/L (5-15); Aspartate Aminotransferase 48 U/L (15-37); Blood Urea Nitrogen 8 mg/dL (7-18); Calcium 8.5 mg/dL (8.5-10.1); Chloride 104 meq/L (98-107); Glomerular Filtration Rate Greater Than 89 mL/min (>89); Glucose,Random 85 mg/dL (74-106); Potassium 3.7 meq/L (3.5-5.1); Sodium 138 meq/L (136-145)
[2018-05-17 11:41] LABS: Alanine Aminotransferase 74 U/L (10-53); Alkaline Phosphatase 179 U/L (45-117)
[2018-05-17 13:21] VITALS: BP 104/62; PULSE 72; TEMP 98; O2SAT 97
[2018-05-18 03:50] LABS: DS DNA Ab (Crithidia) NEGATIVE (NEGATIVE)
--- NOTE | 2018-05-18 08:28 | HM ---
Date Performed: 05/13/2018 Time Performed: 20:26:00 HOOKUP DATE: 05/13/18 08:26:00 PM Wed ANALYSIS START TIME: 05/13/2018 8:31:00 PM ANALYSIS END TIME: 05/14/2018 8:35:00 PM PATIENT AGE: 37 PATIENT HEIGHT PATIENT WEIGHT DRUG LIST PATIENT DIAGNOSIS: sepsis TEST NARRATIVE: The patient's average heart rate was 92 BPM. Heart rates greater than 120 B PM were noted 1% of the time. No episodes of bradycardia were noted. No pauses exceeding 2.0 sec onds were noted. 5 ventricular ectopics, which represented < 1% of the total beat count, were not ed. The highest ventricular ectopic frequency occurred from 07:00 AM to 08:00 AM Dana. During this t juno 2 VE(s) occurred. Ventricular ectopics were observed as 3 isolated beat(s) and as 1 couplet(s). No runs were noted. No supraventricular ectopics were noted. No episodes of ST depression (d efined as -1.0 mm or more) were noted in channel 1. No episodes of ST depression (defined as -1.0 mm or more) were noted in channel 2. No episodes of ST depression (defined as -1.0 mm or more) were no daryl in channel 3. TEST INTERPRETATION: Sinus rhyhtm Rare PVCs Signed by : Cordell Templeton
[2018-05-18 17:50] LABS: Ceruloplasmin 51 mg/dL (18-53)
== END 2018-05-17 18:23 | disposition home or self-care (01) ==
LOC: NEDDLT 09:17 → N05 15:42
PROVIDERS: ADMIT Hospitalist; ATTEND Hospitalist